=== PATIENT | female | born 1950 | race Caucasian/White ===

== ENCOUNTER → 2017-12-07 12:31 | Outpatient (CLI) | payer MEDICARE, OTHER, SELFPAY ==
--- NOTE | 2017-12-07 | DI.MG.S_ITS ---
BILATERAL DIGITAL SCREENING MAMMOGRAM 3D/2D WITH CAD: 12/07/2017 CLINICAL: Routine screening. Family history of breast cancer. Comparison is made to exams dated: 02/28/2016 mammogram, 02/26/2015 mammogram, and 02/13/2014 mammogram - [facility]. There are scattered fibroglandular elements in both breasts. Current study was also evaluated with a Computer Aided Detection (CAD) system. No significant masses, calcifications, or other findings are seen in either breast. There has been no significant interval change. IMPRESSION: NEGATIVE There is no mammographic evidence of malignancy. A 1 year screening mammogram is recommended. This exam was interpreted at Station ID: [id number]. NOTE: For mammograms, a report in lay terms will be sent to the patient. Approximately 15% of breast malignancies will not be visualized mammographically. In the management of a palpable breast mass, a negative mammogram must not discourage biopsy of a clinically suspicious lesion. Electronically Signed By: Mariam lynn/mary:12/07/2017 15:41:35 letter sent: Normal Exam ACR BI-RADS Category 1: Negative 3341F
== END ==
PROVIDERS: Family Provider Internal Medicine; PCP Internal Medicine; Visit Provider Internal Medicine
DX: Z12.31 Encounter for screening mammogram for malignant neoplasm of breast (principal); Z80.3 Family history of malignant neoplasm of breast; Z78.0 Asymptomatic menopausal state; Z90.722 Acquired absence of ovaries, bilateral
CPT/HCPCS: 77063; 77067; 77080

== ENCOUNTER → 2018-09-06 15:06 | Outpatient (CLI) | payer MEDICARE, OTHER, SELFPAY ==
[2018-09-06 16:21] LABS: Hemoglobin A1C% w Est Avg Glu 6.7 % (4.0-6.0)
== END ==
PROVIDERS: PCP Internal Medicine; Visit Provider Internal Medicine
DX: E11.9 Type 2 diabetes mellitus without complications (principal)
CPT/HCPCS: 36415; 83036

== ENCOUNTER 2018-12-20 03:25 | Emergency (ER) | payer MEDICARE, OTHER, SELFPAY ==
--- NOTE | 2018-12-20 03:31 | DI.RAD.S_ITS ---
PROCEDURE: XR CHEST 1V INDICATIONS: chest pain eval TECHNIQUE: One view of the chest was acquired. COMPARISON: None. FINDINGS: Surgical changes and devices: None. Lungs and pleura: Lungs are clear. No pleural effusions or pneumothorax. Mediastinum: Mediastinal contours appear normal. Heart size is normal. Bones and chest wall: No suspicious bony lesions. Overlying soft tissues appear unremarkable. IMPRESSION: No acute cardiopulmonary disease process. Dictated by: Monica Norman MD, PhD on 12/20/2018 at 8:31 Approved by: Monica Norman MD, PhD on 12/20/2018 at 8:34
[2018-12-20 03:34] VITALS: BP 130/55; PULSE 82; RESP 15; TEMP 36.6; O2SAT 95; BMI 27.4
--- NOTE | 2018-12-20 03:34 | ED.CHESTPAIN ---
HPI - Chest Pain General Chief Complaint: Extremity Problem,Nontraumatic Stated Complaint: Left arm pain Time Seen by Provider: 12/20/18 03:26 Source: patient and family Mode of arrival: Ambulatory History of Present Illness HPI narrative: 68-year-old female nonsmoker with history of hypertension and diabetes presents with her in the chief complaint of left arm pain in the absence of any injury since 10:30 p.m. she denies any other symptoms such as dizziness, weakness or lightheadedness. She denies any history of the same. She denies any overuse or other significant activity in the past few days. She denies any change in her ability to tolerate exertion over the past days to weeks. She denies any history of cardiac illness, and she has never had a stress test or heart catheterization. She states her symptoms are worse when she lays down and improves upon standing. MD complaint: other Onset (ago): hour(s) Time: 22:30 Duration: improved Onset: during rest Pain location: other Severity: moderate Quality: aching Pain radiation: LUE Relieving factors: other Exacerbating factors: supine Treatments prior to arrival chest pain: other Related Data On Oral Contraceptives: No Home Medications Medication Instructions Recorded Confirmed biotin 5 mg PO BID #0 01/11/17 duloxetine [Cymbalta] 60 mg PO QDAY #0 01/11/17 gabapentin [Neurontin] 300 mg PO QAM #0 01/11/17 gabapentin [Neurontin] 600 mg PO HS #0 01/11/17 latanoprost [Xalatan] 1 drp OPHTH HS #0 01/11/17 lisinopril 20 mg PO BID #0 01/11/17 metformin [Glucophage XR] 1,000 mg PO BID #0 01/11/17 nortriptyline [Pamelor] 10 mg PO HS #0 01/11/17 omega [id number]-fish oil [Fish Oil] 1,200 mg PO QDAY #0 01/11/17 simvastatin 10 mg PO HS #0 01/11/17 sitagliptin [Januvia] 100 mg PO QDAY #0 01/11/17 trazodone 100 mg PO HS #0 01/11/17 Allergies Allergy/AdvReac Type Severity Reaction Status Date / Time No Known Allergies Allergy Uncoded 07/04/17 12:13 Review of Systems Constitutional Constitutional: Denies chills, Denies fatigue, Denies fever(s), Denies frequent falls, Denies lethargy and Denies weakness Eyes Eyes: Denies change in vision, Denies eye discharge, Denies irritation and Denies loss of vision ENT Ears, Nose, Mouth, and Throat: Denies change in voice, Denies dizziness, Denies neck pain, Denies sore throat and Denies throat swelling Cardiovascular Cardiovascular: Denies chest pain, Denies irregular heart rhythm, Denies lightheadedness, Denies palpitations, Denies dyspnea, Denies dyspnea on exertion and Denies orthopnea Respiratory Respiratory: Denies cough, Denies dyspnea, Denies dyspnea on exertion and Denies wheezing Gastrointestinal Gastrointestinal: Denies abdominal pain, Denies change in bowel habits, Denies diarrhea, Denies nausea and Denies vomiting Genitourinary Genitourinary: Denies hematuria, Denies flank pain, Denies urinary incontinence and Denies urinary urgency Musculoskeletal Musculoskeletal: Denies back pain, Denies muscle weakness, Denies neck pain, Denies numbness and Denies tingling Comments: arm pain Integumentary/Breasts Skin/Breast: Denies pruritus, Denies erythema, Denies rash and Denies wounds Neurologic Neurologic: Denies behavioral changes, Denies confusion, Denies dizziness, Denies frequent falls, Denies loss of vision, Denies numbness, Denies tingling and Denies weakness Psychiatric Psychiatric: Denies anxiety, Denies behavioral changes, Denies confusion, Denies depression, Denies homicidal ideation and Denies suicidal ideation Endocrine Endocrine: Denies fatigue, Denies flushing and Denies palpitations Hematologic/Lymphatic Hematologic/Lymphatic: Denies easy bruising Allergic/Immunologic Allergic/Immunologic: Denies urticaria, Denies throat swelling and Denies wheezing PFSH Social History Smoking Status: Never smoker Social History Smoking Status: Never smoker Exam Narrative Exam Narrative: GENERAL: [68] year old patient appears stated age. Well-nourished, well-developed patient, in mild distress. HEAD: Atraumatic. Normocephalic. EYES: Pupils equal round and reactive. Extraocular motions intact. No scleral icterus. No injection or drainage. ENT: Nose without bleeding, purulent drainage. Throat without erythema, tonsillar hypertrophy or exudate. Airway patent. NECK: Trachea midline. Non tender CARDIOVASCULAR: Regular rate and rhythm without murmurs, gallops, or rubs. RESPIRATORY: Clear to auscultation. Breath sounds equal bilaterally. No wheezes, rales, or rhonchi. GASTROINTESTINAL: Abdomen soft, non-tender, nondistended. EXTREMITIES: No edema or joint tenderness. BACK: Nontender without deformity or crepitance. No flank tenderness. NEURO: AOx3. SKIN: No rash or erythema of visible areas Initial Vital Signs Initial Vital Signs: Vital Signs Temperature 97.8 F 12/20/18 03:34 Pulse Rate 82 12/20/18 03:34 Respiratory Rate 15 12/20/18 03:34 Blood Pressure 130/55 L 12/20/18 03:34 Pulse Oximetry 95 12/20/18 03:34 Course Orders Ordered: ED Orders 12/20/18 03:29 EKG-12 Lead Stat 12/20/18 03:31 XR chest 1V Stat 12/20/18 03:50 Complete Blood Count AUTO DIFF Stat Comprehensive Metabolic Panel Stat D Dimer Stat Lipase Stat Troponin & CK Cardiac Panel Stat Sodium Chloride (Normal Saline 0.9%) 1,000 mls @ 150 mls/hr IV CONT PAVAN Last Admin: 12/20/18 03:45 Dose: 150 mls/hr Documented by: PALMA Discontinued Medications Aspirin (Aspirin Chew) 324 mg PO NOW ONE Stop: 12/20/18 03:32 Last Admin: 12/20/18 03:45 Dose: 324 mg Documented by: PALMA Vital Signs Vital signs: Vital Signs - 8 hr 12/20/18 03:34 Temperature 97.8 F Pulse Rate 82 Respiratory Rate 15 Blood Pressure 130/55 L Pulse Oximetry 95 MDM - Chest Pain Lab Data Result diagrams: 12/20/18 03:50 12/20/18 03:50 Labs: Lab Results 12/20/18 12/20/18 12/20/18 Range/Units 03:50 03:50 03:50 WBC 10.6 (4.5-11.0) X10^3/uL RBC 4.22 (4.0-5.2) X10^6/uL Hgb 12.5 (12.0-16.0) g/dL Hct 36.6 (36-46) % MCV 86.9 (80-100) fL MCH 29.7 (26-34) PG MCHC 34.2 (30-36) % RDW 12.7 (11.6-14.8) % Plt Count 338 (150-400) X10^3/uL Neut % (Auto) 57.9 (50-75) % Lymph % (Auto) 28.2 (25-40) % [place] % (Auto) 9.1 (3-14) % Eos % (Auto) 4.2 H (2-4) % Baso % (Auto) 0.6 (0-2) % Neut # (Auto) 6200 (8535-2257) /uL Lymph # (Auto) 3000 (3456-7080) /uL [place] # (Auto) 1000 H (0-900) /uL Eos # (Auto) 400 (0-450) /uL Baso # (Auto) 100 (0-100) /uL D-Dimer 229 (<230) ng/mL Sodium 138 (137-145) mmol/L Potassium 4.5 (3.4-5.1) mmol/L Chloride 102 (98-107) mmol/L Carbon Dioxide 25 (22-32) mmol/L BUN 25 H (7-17) mg/dL Creatinine 0.70 (0.52-1.04) mg/dL Estimated GFR > 60.0 (>60) mL/min BUN/Creatinine Ratio 35.7 H (6-22) Glucose 151 H (80-110) mg/dL Calcium 9.6 (8.4-10.2) mg/dL Total Bilirubin 0.5 (0.2-1.3) mg/dL AST 32 (14-36) IU/L ALT 40 (9-52) IU/L Alkaline Phosphatase 77 (38-126) U/L Total Creatine Kinase 47 (30-135) U/L CK-MB (CK-2) TNP CK-MB (CK-2) Rel Index TNP Troponin I < 0.012 (0.01-0.034) ng/mL Total Protein 6.9 (6.3-8.2) g/dL Albumin 4.1 (3.5-5.0) g/dL Globulin 2.8 (1.7-4.1) g/dL Albumin/Globulin Ratio 1.5 (1.0-2.8) Lipase 93 (23-300) U/L ECG Data Attestation: I personally reviewed and interpreted this ECG as follows: Interpretation: EKG is normal sinus rhythm rate [83] and free of any signs of ischemia or ectopy. No ST segmental elevation or depression. No T wave inversions MDM Narrative Medical decision making narrative: 68-year-old female hypertensive diabetic with left arm pain for about 5-1/2 hours on arrival. She recently had dermatologic procedures on chest and left arm. Multiple causes of chest pain considered including MA, PE, pneumothorax, pneumonia, aortic dissection, and pleurisy. Patient reports no radiation, no diaphoresis, no provocation with exertion, and no vomiting She denies cardiac equivalents such as dizziness, weakness or lightheadedness. She denies any chest pain or shortness of breath. Her pain is positional. EKG is nonischemic. Patient asymptomatic for duration of stay. Troponin at 5.5 hours is undetectable. Lengthy discussion with patient regarding return precautions. Questions answered to her apparent satisfaction Discharge Plan Departure Patient Disposition: Home Clinical Impression: Arm pain, left Instructions: DI for Arm Pain Activity Restrictions/Additional Instructions: *You have been diagnosed with [left arm pain] *What to do: *Take medications as directed *Follow up with your primary care provider in 2-3 days, call for an appointment. Let them know you were seen in the Emergency Department and that we ask that you be seen in follow up *Return to ER if you should have any new, worsening or concerning symptoms Prescriptions: No Action simvastatin 10 MG tablet 10 mg PO HS Qty: 0 RF: 0 lisinopril 20 MG tablet 20 mg PO BID Qty: 0 RF: 0 metformin [Glucophage XR] 500 MG tablet extended release 24 hr 1,000 mg PO BID Qty: 0 RF: 0 trazodone 100 MG tablet 100 mg PO HS Qty: 0 RF: 0 nortriptyline [Pamelor] 10 MG capsule 10 mg PO HS Qty: 0 RF: 0 gabapentin [Neurontin] 300 MG capsule 300 mg PO QAM Qty: 0 RF: 0 duloxetine [Cymbalta] 60 MG capsule,delayed release(DR/EC) 60 mg PO QDAY Qty: 0 RF: 0 gabapentin [Neurontin] 300 MG capsule 600 mg PO HS Qty: 0 RF: 0 sitagliptin [Januvia] 100 MG tablet 100 mg PO QDAY Qty: 0 RF: 0 latanoprost [Xalatan] 0.005 % drops 1 drp OPHTH HS Qty: 0 RF: 0 biotin 5 MG tablet 5 mg PO BID Qty: 0 RF: 0 omega 8-jhh-jfw-fish oil [Fish Oil] 1,000 MG capsule 1,200 mg PO QDAY Qty: 0 RF: 0 Referrals: Lisandro Aguilar MD [Primary Care Provider] -
[2018-12-20] MEDS: ASPIRIN 81 MG CHEW TAB 324 MG PO (03:45)
[2018-12-20] MEDS: SODIUM CHLORIDE 0.9% 1,000 ML 150 ML IV (03:45)
[2018-12-20 03:55] LABS: Add Manual Diff / Slide Review NO; Basophils Absolute Auto 100 /uL (0-100); Basophils Percent Auto 0.6 % (0-2); Eosinophils Absolute Auto 400 /uL (0-450); Eosinophils Percent Auto 4.2 % (2-4); Hematocrit 36.6 % (36-46); Hemoglobin 12.5 g/dL (12.0-16.0); Lymphocytes Absolute Auto 3000 /uL (1100-4500); Lymphocytes Percent Auto 28.2 % (25-40); Mean Corpuscular HGB Conc 34.2 % (30-36); Mean Corpuscular Hemoglobin 29.7 PG (26-34); Mean Corpuscular Volume 86.9 fL (80-100); Monocytes Absolute Auto 1000 /uL (0-900); Monocytes Percent Auto 9.1 % (3-14); Neutrophils Absolute Auto 6200 /uL (1500-7000); Neutrophils Percent Auto 57.9 % (50-75); Platelet Count 338 X10^3/uL (150-400); Red Blood Cell Count 4.22 X10^6/uL (4.0-5.2); Red Cell Distribution Width 12.7 % (11.6-14.8); White Blood Cell Count 10.6 X10^3/uL (4.5-11.0)
[2018-12-20 04:04] LABS: D Dimer 229 ng/mL (<230)
[2018-12-20 04:05] LABS: Alanine Aminotransferase 40 IU/L (9-52); Albumin 4.1 g/dL (3.5-5.0); Albumin Globulin Ratio 1.5 (1.0-2.8); Alkaline Phosphatase 77 U/L (38-126); Aspartate Aminotransferase 32 IU/L (14-36); BUN Creatinine Ratio 35.7 (6-22); Bilirubin Total 0.5 mg/dL (0.2-1.3); Blood Urea Nitrogen 25 mg/dL (7-17); Calcium 9.6 mg/dL (8.4-10.2); Carbon Dioxide 25 mmol/L (22-32); Chloride 102 mmol/L (98-107); Creatine Kinase 47 U/L (30-135); Estimated Glomerular Filt Rate > 60.0 mL/min (>60); Globulin 2.8 g/dL (1.7-4.1); Glucose 151 mg/dL (80-110); HEMOLYSIS < 15 (0-50); Lipase 93 U/L (23-300); Potassium 4.5 mmol/L (3.4-5.1); Sodium 138 mmol/L (137-145); Total Protein 6.9 g/dL (6.3-8.2)
[2018-12-20 04:16] LABS: Troponin I < 0.012 ng/mL (0.01-0.034)
[2018-12-20 04:45] VITALS: BP 116/54; PULSE 80; RESP 15; O2SAT 95
== END 2018-12-20 04:46 | disposition home or self-care (01) ==
PROVIDERS: Emergency Provider Emergency Medicine; PCP Internal Medicine
DX: M79.602 Pain in left arm (principal)
CPT/HCPCS: 36415; 71045; 80053; 82550; 83690; 84484; 85025; 85379; 93005; 93010; 99283; 99285

== ENCOUNTER → 2019-04-07 10:57 | Outpatient (CLI) | payer MEDICARE, OTHER, SELFPAY ==
--- NOTE | 2019-04-07 | DI.RAD.S_ITS ---
PROCEDURE: XR HIP W PEL IF DONE LT 2V INDICATIONS: Pain in left hip TECHNIQUE: AP pelvis with lateral view(s) of the left hip. COMPARISON: None. FINDINGS: Bones: No fractures or dislocations. Pelvic ring appears intact. No suspicious bony lesions. Soft tissues: The visualized bowel gas pattern is normal. No suspicious soft tissue calcifications. IMPRESSION: No source of asymmetric left hip pain found. Dictated by: Zach Hollingsworth M.D. on 04/07/2019 at 12:23 Approved by: Zach Hollingsworth M.D. on 04/07/2019 at 12:24
== END ==
PROVIDERS: PCP Internal Medicine; Visit Provider Student in an Organized Health Care Education/Training Program
DX: M25.552 Pain in left hip (principal)
CPT/HCPCS: 73502

== ENCOUNTER → 2019-12-10 11:32 | Outpatient (CLI) | payer MEDICARE, OTHER, SELFPAY ==
--- NOTE | 2019-12-10 11:44 | DI.MG.S_ITS ---
Patient Name: RENATO ALVA date: 1950 Sex: F Attending Physician: Jeff Indications: Date: 12/10/2019 11:38 At the request of: BALTAZAR CHRISTINE Procedure: MM screening mammo BI BILATERAL DIGITAL SCREENING MAMMOGRAM 3D/2D WITH CAD: 12/10/2019 CLINICAL: Routine screening. Family history of breast cancer. Comparison is made to exams dated: 12/07/2017 mammogram, 02/28/2016 mammogram, and 02/26/2015 mammogram - [facility]. There are scattered fibroglandular elements in both breasts. Current study was also evaluated with a Computer Aided Detection (CAD) system. No significant masses, calcifications, or other findings are seen in either breast. There has been no significant interval change. IMPRESSION: NEGATIVE There is no mammographic evidence of malignancy. A 1 year screening mammogram is recommended. This exam was interpreted at Station ID: [id number]. NOTE: For mammograms, a report in lay terms will be sent to the patient. Approximately 15% of breast malignancies will not be visualized mammographically. In the management of a palpable breast mass, a negative mammogram must not discourage biopsy of a clinically suspicious lesion. Electronically Signed By: José Luis Jiménez M.D., jr/mary:12/10/2019 14:11:17 letter sent: Normal Exam ACR BI-RADS Category 1: Negative 3341F
== END ==
PROVIDERS: PCP Internal Medicine; Referring Provider Internal Medicine; Visit Provider Internal Medicine
DX: Z12.31 Encounter for screening mammogram for malignant neoplasm of breast (principal); Z80.3 Family history of malignant neoplasm of breast; E55.9 Vitamin D deficiency, unspecified; E11.9 Type 2 diabetes mellitus without complications; N28.1 Cyst of kidney, acquired; E78.2 Mixed hyperlipidemia; I10 Essential (primary) hypertension; E83.42 Hypomagnesemia
CPT/HCPCS: 77063; 77067; 80053; 80061; 82306; 82607; 83735; 84443; 85025

== ENCOUNTER → 2019-12-10 15:43 | Outpatient (ROUT) | payer MEDICARE, OTHER, SELFPAY ==
[2019-12-10 16:11] LABS: Alanine Aminotransferase 25 IU/L (<35); Albumin 3.9 g/dL (3.5-5.0); Albumin Globulin Ratio 1.6 (1.0-2.8); Alkaline Phosphatase 79 U/L (38-126); Aspartate Aminotransferase 25 IU/L (14-36); BUN Creatinine Ratio 38.4 (6-22); Bilirubin Total 0.3 mg/dL (0.2-1.3); Blood Urea Nitrogen 28 mg/dL (7-17); Calcium 9.5 mg/dL (8.4-10.2); Carbon Dioxide 28 mmol/L (22-32); Chloride 100 mmol/L (98-107); Cholesterol 195 mg/dL (140-199); Estimated Glomerular Filt Rate > 60.0 mL/min (>60); Globulin 2.5 g/dL (1.7-4.1); Glucose 186 mg/dL (80-110); HDL Cholesterol 69 mg/dL (40-60); HEMOLYSIS < 15 (0-50); LDL Cholesterol Calculated 87 mg/dL (<100); Magnesium 1.4 mg/dL (1.6-2.3); Potassium 4.9 mmol/L (3.4-5.1); Sodium 137 mmol/L (137-145); Total Protein 6.4 g/dL (6.3-8.2); Triglycerides 196 mg/dL (35-150)
[2019-12-10 16:18] LABS: Add Manual Diff / Slide Review NO; Basophils Absolute Auto 100 /uL (0-100); Basophils Percent Auto 0.9 % (0-2); Eosinophils Absolute Auto 500 /uL (0-450); Eosinophils Percent Auto 7.2 % (2-4); Hematocrit 36.3 % (36-46); Lymphocytes Absolute Auto 1800 /uL (1100-4500); Lymphocytes Percent Auto 23.5 % (25-40); Mean Corpuscular HGB Conc 33.1 % (30-36); Mean Corpuscular Hemoglobin 29.6 PG (26-34); Mean Corpuscular Volume 89.6 fL (80-100); Monocytes Absolute Auto 500 /uL (0-900); Monocytes Percent Auto 6.9 % (3-14); Neutrophils Absolute Auto 4600 /uL (1500-7000); Neutrophils Percent Auto 61.5 % (50-75); Platelet Count 322 X10^3/uL (150-400); Red Blood Cell Count 4.05 X10^6/uL (4.0-5.2); Red Cell Distribution Width 14.1 % (11.6-14.8); White Blood Cell Count 7.5 X10^3/uL (4.5-11.0)
[2019-12-10 16:50] LABS: Vitamin D 25 Hydroxy (D3) 35.5 ng/mL (30.0-100.0)
[2019-12-10 16:57] LABS: Vitamin B12 440 pg/mL (239-931)
== END ==
PROVIDERS: PCP Internal Medicine; Visit Provider Internal Medicine
DX: E55.9 Vitamin D deficiency, unspecified (principal); E11.9 Type 2 diabetes mellitus without complications; N28.1 Cyst of kidney, acquired; E78.2 Mixed hyperlipidemia; I10 Essential (primary) hypertension; E83.42 Hypomagnesemia
CPT/HCPCS: 80053; 80061; 82306; 82607; 83735; 84443; 85025

== ENCOUNTER → 2020-10-18 12:38 | Outpatient (CLI) | payer MEDICARE, OTHER, SELFPAY ==
--- NOTE | 2020-10-18 | DI.CT.S_ITS ---
PROCEDURE: CT LUMBAR SPINE WO CON INDICATIONS: Spinal stenosis, lumbar region with neurogenic cla TECHNIQUE: Noncontrast 3 mm thick sections acquired from the T12 level to the sacrum. Sagittal and coronal reformats were constructed. For radiation dose reduction, the following was used: automated exposure control. COMPARISON: [facility], MR, MR LUMBAR SPINE WITHOUT CONTRAST, 06/05/2019, 7:16. [facility] [place], CR, XR LUMBAR SPINE 2 OR 3 VIEWS, 08/03/2020, 15:12. FINDINGS: Image quality: Excellent. Bones: There is normal bony alignment. No acute vertebral body compression fractures. No suspicious lytic or blastic bony lesions. No pars defects. T12-L1: Mild diffuse disc bulge. Mild bilateral facet hypertrophy. Mild canal stenosis. Mild bilateral foraminal stenosis. L1-L2: Mild disc height loss. Mild diffuse disc bulge. Mild bilateral facet hypertrophy. Mild canal stenosis. Mild bilateral foraminal stenosis. L2-L3: Mild disc height loss. Mild diffuse disc bulge. Mild bilateral facet hypertrophy. Mild canal stenosis. Mild bilateral foraminal stenosis. L3-L4: Moderate disc height loss. Mild diffuse disc bulge. Mild facet and ligamentum flavum hypertrophy. Moderate to severe canal stenosis. Moderate left and mild right foraminal stenosis. L4-L5: Moderate disc height loss. Mild diffuse disc bulge. Moderate facet and ligamentum flavum hypertrophy. Mild epidural lipomatosis. Moderate canal stenosis. Moderate right and mild left foraminal stenosis. L5-S1: Severe disc height loss. Mild diffuse disc bulge. Mild bilateral facet hypertrophy. Mild canal stenosis. Moderate to severe bilateral foraminal stenosis with bilateral L5 nerve root compression. Soft tissues: No retroperitoneal masses or hematomas. Visualized aorta is normal in caliber. IMPRESSION: 1. Multilevel degenerative disc and facet disease. 2. Multilevel canal stenoses, worst at L3-L4 and L4-L5 as above. 3. Multilevel foraminal stenoses, worst at L5-S1 bilaterally where there is associated intraforaminal nerve root compression. Recommend correlation with clinical symptoms to ascertain relevance of these findings. Dictated by: Susy Leggett M.D. on 10/18/2020 at 13:36 Approved by: Susy Leggett M.D. on 10/18/2020 at 13:39
== END ==
PROVIDERS: PCP Internal Medicine; Referring Provider Orthopaedic Surgery Orthopaedic Surgery of the Spine; Visit Provider Orthopaedic Surgery Orthopaedic Surgery of the Spine
DX: M48.062 Spinal stenosis, lumbar region with neurogenic claudication (principal); M48.07 Spinal stenosis, lumbosacral region; M51.36 Other intervertebral disc degeneration, lumbar region; M51.37 Other intervertebral disc degeneration, lumbosacral region
CPT/HCPCS: 72131

== ENCOUNTER → 2020-11-02 10:43 | Outpatient (CLI) | payer MEDICARE, OTHER, SELFPAY ==
[2020-11-02 11:38] LABS: COVID19 -Nasal RAPID Negative (Negative)
== END ==
PROVIDERS: PCP Internal Medicine; Visit Provider Nurse Practitioner
DX: Z20.822 Contact with and (suspected) exposure to COVID-19 (principal)
CPT/HCPCS: 87635

== ENCOUNTER 2020-11-03 10:56 | Inpatient (IN) | payer MEDICARE, OTHER, SELFPAY ==
[2020-10-27 09:47] VITALS: BMI 30.7
[2020-11-03] VITALS (18 sets, daily range): BP systolic 97–165; BP diastolic 48–95; PULSE 66–90; RESP 12–16; TEMP 35.8–36.7; O2SAT 89–100; BMI 30.7
[2020-11-03 11:45] LABS: Appearance Urine UA SL CLOUDY; Bilirubin Urine UA NEGATIVE (NEGATIVE); Color Urine UA YELLOW; Glucose Urine UA 3+ g/dL (Negative); Ketones Urine UA NEGATIVE (NEGATIVE); Leukocyte Esterase Urine UA NEGATIVE (NEGATIVE); Nitrite Urine UA POSITIVE (Negative); Occult Blood Urine UA TRACE-LYSED (Negative); Protein Urine UA NEGATIVE (Negative); Urobilinogen Urine UA 0.2 E.U./dL (0.2)
[2020-11-03 12:06] LABS: Bacteria Urine Many (>30); Culture Indicated Urine Specimen Cultured; RBC Urine 0-1/HPF (0-5/HPF); Squamous Epithelial Cell Urine 1-5 /HPF (0-5/HPF); WBC Urine 10-30/HPF (0-5/HPF)
[2020-11-03] MEDS: ACETAMINOPHEN 325 MG TABLET 975 MG PO (12:08)
[2020-11-03] MEDS: GABAPENTIN 600 MG TABLET PO (12:08)
[2020-11-03] MEDS: LACTATED RINGERS 1,000 ML 42 ML IV ×2 (12:10→16:57)
--- NOTE | 2020-11-03 12:46 | PM.PREOP ---
Pre-operative Note COVID-19 COVID-19 status: Negative Result date/Date tested (Pos, Neg/Pending): 11/01/20 Interval Note History & Physical reviewed/Exam performed by Physician: Yes Changes to H&P: No
[2020-11-03] MEDS: CEFAZOLIN 1 GM VIAL 2 GM IV ×2 (13:56→21:15)
--- NOTE | 2020-11-03 14:25 | SUR.OPER ---
Prone on spine table, head in foam head support, padded chest and pelvic supports, gel pad at knees, lower legs supported by pillows; nipples, genitalia and toes free of pressure, arms secured on foam padded arm boards at <90 degrees abduction. Tape over blanket at thigh secured to table.
[2020-11-03] MEDS: BUPIVACAINE 0.25% W/ EPI 30 ML VIAL INJ (14:33)
[2020-11-03] MEDS: BUPIVACAINE LIPOSOME 266 MG/20 ML VIAL INJ (14:33)
--- NOTE | 2020-11-03 14:35 | SUR.OPER ---
Patient voided prior to coming in to Operating Room. Patient's glasses placed in marked belongings bag. Patient stated she had already taken her hearing aids out.
[2020-11-03] MEDS: DEXTROSE 5%-0.45% NS 1,000 ML 100 ML IV (15:10)
--- NOTE | 2020-11-03 16:52 | DI.RAD.S_ITS ---
PROCEDURE: XR LUMBAR SPINE 2-3V INDICATIONS: L4-5, L5-S1 TLIF TECHNIQUE: 2 nondiagnostic intraoperative fluoroscopic views of the lumbar spine were acquired. COMPARISON: None. FINDINGS: There are two intraoperative fluoroscopic images which demonstrate postsurgical changes of L4-S1 posterior fixation by means of bilateral rods and pedicle screws with interbody devices. There is no acute complicating hardware feature identified grossly. IMPRESSION: L4-S1 posterior fixation. Dictated by: José Luis Jiménez M.D. on 11/03/2020 at 17:09 Approved by: José Luis Jiménez M.D. on 11/03/2020 at 17:09
--- NOTE | 2020-11-03 17:05 | PM.OP.1 ---
Operative Date/Time/Diagnoses Date of procedure: 11/01/20 Time of procedure: 12:50 Pre-op diagnosis: 1. L4-5, L5-S1 spinal stenosis 2. L4-5, L5-S1 spondylosis with radiculopathy Post-op diagnosis: same Procedure & Clinicians Procedure: 1. L4-5, L5-S1 Postero-lateral and posterior interbody fusion 2. L4-5, L5-S1 interbody cage placement. 3. L4-5, L5-S1 decompressive laminectomy with bilateral facetecomies 4. L4-5, L5-S1 Posterior segmental instrumentation 5. [place] of bone marrow from iliac crest 6. Utilization of microsurgical technique and operating microscope Same procedure as scheduled: Yes Indications: Patient has been having chronic back pain and worsening lumbar radiculopathy. Patient failed multiple conservative management with worsening pain weakness and numbness in her lower extremity. Patient has been having difficulty performing activity of daily living. After discussing risks benefits of treatment options, patient elected proceed with surgery. Surgeon: Jocelynn Sanchez Paradichlorobenzene Machine Operator: Osorio Montes Click Yes if Unassisted: No Anesthesia Type: General Operative Notes Closure Type: primary Specimen(s): none sent Prosthetic devices, grafts, tissues, transplants, or devices: Globus CREO MIS screws, Rise Cages Applied: catheter Estimated Blood Loss (mL): 150 Blood products transfused: none Procedure in detail: Patient was seen in the preoperative area. Risks and benefits of the surgery was discussed with the patient. Informed consent was obtained from the patient and placed in the chart. Surgical site was marked. Patient was taken to the operative room. General anesthesia was administered. Prophylactic antibiotic was given to the patient less than 30 min before the incision was made. Patient was placed into a prone position on the Julián table. Patient's back was then prepped and draped in the sterile fashion. Time-out was performed at this time. After patient was prepped and draped, patient's PSIS was palpated and marked bilaterally. Small 1 cm incision was made over the PSIS for placement of the reference probes. Two trocar was placed into the PSIS 1 on each side. The reference probe was attached to the trocar of the reference apparatus. At this time the C-arm imaging was used to confirm AP and lateral of L4-L5, L5-S1 vertebrae and merged the C-arm imaging using the Sponduu robotic navigation system with the CT of the lumbar spine. After successful merging was completed and confirmed, skin marker was used to jose out the skin incision using the Sponduu robotic arm. Bilateral incision was made at this time. Pre templated trajectory was used and guided using the Sponduu robotic navigation system for bilateral L4, L5, S1 pedicle screw placement. This was done by using the robotic arm to guide the high-speed bur to make a cortical entry point. Next a drill was placed also using the robotic arm and guided using the navigation system drilling partially through bilateral L4, L5 and S1 pedicles. Next L4, L5, S1 pedicle screws it was pre templated and measured was placed onto the power maintenance truck driver and inserted into the pedicles bilaterally. After all 6 screws were placed C-arm imaging was taken of both AP and lateral to confirm the placement. Excellent placement of the screws were confirmed and a matched precisely with the pre planned screw placement using the navigation system. MARs retractor was inserted using Nimbixivation guidence. Globus MARS retractors was placed inside the incision and docked onto the L4 and L5 lamina. Using microsurgical technique and operating microscope, a L4, L5 laminectomy and L4-5, L5-S1 facetectomy was performed using a Kerrison rongeur. Patient was found have severe lateral recess and neural foramen stenosis which was fully decompressed after the laminectomy facetectomy. More than 75% of the facets were removed during the process of decompression rendering L4-5, L5-S1 level grossly unstable and required a fusion procedure at the same time. The disc space at L4-5, L5-S1 was identified, and a total diskectomy was performed at L4-5, L5-S1 level. The endplates were decorticated using a rasp and shaver. The total diskectomy and decortication was performed at L4-5, L5-S1 level in order to to accomplish a L4-5, L5-S1 fusion. The local bone from the laminectomy and facetectomy was saved for local bone grafting. After the total diskectomy and decortication was completed, Trifecta bone graft material was combined with local bone that was harvested earlier. At this time, a separate skin is incision was made over the iliac crest. A Jamshidi needle was inserted into the iliac crest through a separate skin incision. 5 cc of bone marrow aspiration was obtained through the separate skin incision using a Jamshidi needle from the iliac crest. The bone marrow aspiration was combined with local bone and the Trifecta bone grafting material. The bone grafting material was placed into the L4-5, L5-S1 interbody space along with a expandable cage. The cage was expanded to its maximum height using the torque limiting screwdriver. The disc preparation as well as the cage insertion were also performed under navigation guidance. After the cage was placed, AP and lateral C-arm imaging was taken to confirm placement of the cage and excellent position was confirmed. Globus MARS retractor was inserted and docked onto the L4-5, L5-S1 posterolateral gutter on the right side. Using the power drill, posterior-lateral decortication was performed at L4-5, L5-S1 level until bleeding cortical bone was identified. The remaining bone grafting material was placed into the L4-5, L5-S1 posterior lateral gutter he order to accomplish posterolateral fusion at the L4-5, L5-S1 level. At this time the tulips were attached to the L4, L5, S1 pedicle screw shanks. After measuring the length of the rods, they were inserted into the tulips of the pedicle screws and locked in place using locking caps and torque limiting screwdriver bilaterally. Total 6 caps and 2 titanium rods was used in order to complete the posterior instrumentation construct. After all the hardware was placed, and confirmed with AP and lateral C-arm imaging, the wound was then irrigated with sterile normal saline and packed with Ray-Luis gauze for 3 min to accomplish hemostasis. After the gauze was removed the deep fascia was closed with #1 Vicryl suture. The subcutaneous layer was closed with 2-0 Vicryl. The skin was closed with skin joya. Patient tolerated the procedure well. There were no complications. Neuro monitoring system was used to monitor patient's neurologic status throughout entire procedure. There was no disturbance of the neural monitoring signals throughout the case. Complications: none Post-operative Condition: stable Disposition: PACU Plan for aftercare: Admit to inpatient hospital
[2020-11-03] MEDS: HYDROMORPHONE 2 MG INJ IV ×4 (17:40→17:57)
[2020-11-03] MEDS: OXYCODONE IR 5 MG TABLET PO (17:54)
[2020-11-03] MEDS: SODIUM CHLORIDE 0.9% 1,000 ML 100 ML IV (18:59)
[2020-11-03] MEDS: HYDROMORPHONE 0.5 MG INJ IV ×2 (18:59→22:20)
--- NOTE | 2020-11-03 19:20 | PC.NURSE ---
Patient up to unit from PACU at 1830. Bed low and locked and call light within reach along with other personal items. Patient requiring 2L NC but weaning off as needed. Patient denies sob, nausea. Having pain rated 7/10 so gave IV dilaudid. Patient's is at the bedside and is attentive to patient. He will be bringing in her jardiance as we do not stock this as well as a copy of the patient's advanced directive.
[2020-11-03] MEDS: TIMOLOL 0.5% OPHTH 1 DROPS EYE-BOTH (21:14)
[2020-11-03] MEDS: LATANOPROST 0.005% OPHTH 2.5 ML 1 DROPS EYE-BOTH (21:14)
[2020-11-03] MEDS: OXYCODONE IR 5 MG TABLET 10 MG PO (21:15)
[2020-11-03] MEDS: NORTRIPTYLINE 10 MG CAPSULE PO (21:15)
[2020-11-03] MEDS: ATORVASTATIN 20 MG TABLET 10 MG PO (21:16)
[2020-11-03] MEDS: DOCUSATE 100 MG CAPSULE PO (21:16)
[2020-11-03] MEDS: glyBURIDE 2.5 MG TABLET 5 MG PO (21:16)
[2020-11-03] MEDS: SENNOSIDES 8.6 MG TABLET 17.2 MG PO (21:16)
[2020-11-03] MEDS: GABAPENTIN 300 MG CAPSULE 600 MG PO (21:16)
[2020-11-03] MEDS: lisinopriL 20 MG TABLET PO (21:17)
[2020-11-03] MEDS: TRAZODONE 100 MG TABLET PO (21:17)
[2020-11-04] VITALS (10 sets, daily range): BP systolic 134–152; BP diastolic 56–93; PULSE 89–102; RESP 16–18; TEMP 36.6–37.4; O2SAT 94–99
[2020-11-04] MEDS: ONDANSETRON 4 MG/2 ML INJ IV (01:36)
[2020-11-04] MEDS: HYDROMORPHONE 0.5 MG INJ IV ×2 (02:26→05:01)
--- NOTE | 2020-11-04 02:45 | PC.NURSE ---
Addendum entered by Nelda Pittman R.N. 11/04/20 05:05: Had another 100cc emesis. Too early to give Zofran again so medicated with po Vistaril with sips of water. Medicated also with IV Dilaudid for complaint of 7/10 back pain. Original Note: Patient is alert and oriented. [place] and has bilateral hearing aids. Breath sounds CTA but per evening RN patient's oxygen level dropped into mid 80's when asleep so is now on oxygen at 2L/min per NC with sat of 95%. HRR. BP trending high and was 148/93. Denied nausea. BT present but is not yet passing flatus. Indwelling catheter is patent; urine is clear, pale, yellow. Is able to turn herself. Dressing to back is CDI. Has not yet been out of bed so gait not assessed. Stated pain had improved to 3/10 following administration of IV Dilaudid earlier; ice pack applied to back after repositioning. Wearing bilateral foot SCD's. CMS is intact bilaterally. Fall risk score is moderate but spouse at bedside so alarm not activated. Patient earlier complaining of nausea and was medicated per Juliana NICOLE, with Zofran but now had 150cc emesis. States pain is currently 9/10 so medicated with IV Dilaudid; states she is unable to take Oxycodone as it makes me weird. Also complains of headache so instructed to call if IV Dilaudid does not resolve the headache once nausea is resolved.
[2020-11-04] MEDS: hydrOXYzine pamoate 25 MG CAPSULE PO ×2 (04:58→21:33)
[2020-11-04] MEDS: CEFAZOLIN 1 GM VIAL 2 GM IV (05:33)
[2020-11-04] MEDS: SODIUM CHLORIDE 0.9% 1,000 ML 100 ML IV (05:35)
[2020-11-04 06:34] LABS: Hematocrit 39.6 % (36-46); Hemoglobin 12.7 g/dL (12.0-16.0)
[2020-11-04] MEDS: DOCUSATE 100 MG CAPSULE PO ×2 (08:02→19:52)
[2020-11-04] MEDS: glyBURIDE 2.5 MG TABLET 5 MG PO ×2 (08:06→17:16)
[2020-11-04] MEDS: TIMOLOL 0.5% OPHTH 1 DROPS EYE-BOTH (08:06)
[2020-11-04] MEDS: GABAPENTIN 300 MG CAPSULE 600 MG PO ×3 (08:06→19:52)
[2020-11-04] MEDS: lisinopriL 20 MG TABLET PO ×2 (08:07→19:51)
[2020-11-04] MEDS: TRAMADOL 50 MG TABLET PO ×4 (08:07→21:34)
[2020-11-04] MEDS: PIOGLITAZONE 15 MG TABLET 30 MG PO (08:07)
[2020-11-04] MEDS: DULOXETINE 30 MG CAPSULE 60 MG PO (08:19)
[2020-11-04] MEDS: SITAGLIPTIN 50 MG TABLET 100 MG PO (08:19)
--- NOTE | 2020-11-04 08:19 | PM.PNPO.1 ---
Subjective Subjective Date Patient Seen: 11/04/20 Time Patient Seen: 08:19 Interval history: The patient is complaining of moderate pain, mostly a headache which is perpetuating her back pain. She has a history of migraines and is requesting Immitrex for her pain, which has been effective in the past. She also notes she has a few days of malodorous urine prior to surgery, and her UA was positive for WBC and nitrates. She is also complaining of nausea and vomiting, which is improving slightly. She has not gotten up with physical therapy yet. Exam Vital Signs (past 8 hours): - 11/04/20 01:25 11/04/20 05:53 11/04/20 07:40 Temperature 97.8 F 98.1 F Pulse Rate 91 H 101 H 102 H Respiratory Rate 18 16 16 Blood Pressure 148/93 H 134/82 152/90 H Pulse Oximetry 98 97 97 11/04/20 08:07 Temperature Pulse Rate 100 H Respiratory Rate Blood Pressure 152/90 H Pulse Oximetry Oxygen Delivery Method Nasal Cannula Oxygen Flow Rate 2 Narrative Exam Narrative: 70yo female resting in bed, very mild distress with nausea and headache. Motor functions intact bilateral lower extremities. Sensation grossly intact to light touch bilateral lower extermities. Both legs are warm and dry. SCDs on and functioning. Scant drainage on dressing bilaterally, otherwise intact. Calves are soft, nontender to palpation. Objective Labs Result Diagrams: 11/04/20 06:21 Labs: Laboratory Results - last 24 hr 11/03/20 11/04/20 11:27 06:21 Hgb 12.7 Hct 39.6 Urine Color Yellow Urine Appearance Sl cloudy Urine pH 7.0 Ur Specific [place] 1.010 Urine Protein Negative Urine Glucose (UA) 3+ H Urine Ketones Negative Urine Occult Blood Trace-lysed Urine Nitrate Positive H Urine Bilirubin Negative Urine Urobilinogen 0.2 Ur Leukocyte Esterase Negative Urine RBC 0-1/hpf Urine WBC 10-30/hpf H Ur Squamous Epith Cells 1-5 /hpf Urine Bacteria Many (>30) H Ur Culture Indicated? Specimen cultured [facility] Medical History Anxiety Diabetes Easy bruisability Eye pressure Hard of hearing HLD (hyperlipidemia) HTN (hypertension) Surgical History History of ear surgery History of hysterectomy History of tonsillectomy Hx of bilateral cataract extraction Social History household members: spouse Smoking Status: Never smoker alcohol intake: current Assessment & Plan Post-op Postoperative Procedures: Procedures Operation Date: 11/03/20 12:45 Actual Procedure Side Surgeon p L4-5, L5-S1 TLIF w. posterior instrumentation Jocelynn Sanchez MD Stable status post lumbar fusion. PLan: mobilize with physical therapy. Limit bending, twisting, lifting. Better pain control, will change to tyelnol, tramadol for mild-moderate pain, and oral dilaudid as needed for severe pain. Will try Immitrex for her migraine. Start Bactrim DS x5 days for UTI. Discontinue the Muller this afternoon. Disposition: likely home tomorrow. Quality VTE Deep Vein Thrombosis/Pulmonary Embolism Present on Admission: No
[2020-11-04] MEDS: TRIMETH/SULFA 160/800 (DS) TABLET 1 TAB PO ×2 (09:28→19:52)
[2020-11-04] MEDS: SUMAtriptan 6 MG/0.5 ML VIAL SUBCUT (09:28)
--- NOTE | 2020-11-04 09:50 | OT.IP.EVAL ---
Current Diagnoses Spinal stenosis, lumbar region with neurogenic claudication (11/03/20) Surgery Performed Operation Date: 11/03/20 12:45 Actual Procedures p L4-5, L5-S1 TLIF w. posterior instrumentation - Jocelynn Sanchez MD Past Medical History (Last Reviewed 11/04/20 @ 08:36 by Nay Isaacs PA-C) Anxiety Diabetes Easy bruisability Eye pressure Hard of hearing History of ear surgery History of hysterectomy History of tonsillectomy HLD (hyperlipidemia) HTN (hypertension) Hx of bilateral cataract extraction Surgical History (Last Reviewed 11/04/20 @ 08:36 by Nay Isaacs PA-C) History of ear surgery History of hysterectomy History of tonsillectomy Hx of bilateral cataract extraction Occupational Therapy Inpatient Evaluation/Re-Eval M1 PT/OT-IP Prior Functional Status Start: 11/04/20 12:29 Freq: NEEDED Status: Active Protocol: Document 11/04/20 12:35 [facility] (Rec: 11/04/20 12:52 [facility] [id number]) Medical Review Prior Functional Status Medical History Reviewed Yes Communication Independent Mobility and Gait Independent without a device but heavily relied on pain medication in order to get around. Activities of Daily Living and IADL's Heavily relied on pain medications so able to do ADL and IADl needs. Social History Household Members spouse Living Arrangements House Number of Floors (Floors) One Floor Number of Stairs To Enter/Railing? Pt states has one 1/2 step and then landing and then another 1/2 step in order to get into the house. Home Environment Standard Height Toilet,Walk in Shower,Tub/Shower Home Equipment Front Wheel Walker,Straight Cane,Shower Seat without Backrest,Sock Aid M2 OT-IP Current Condition Start: 11/04/20 12:34 Freq: Status: Active Protocol: Document 11/04/20 12:35 [facility] (Rec: 11/04/20 12:52 [facility] [id number]) Occupational Therapy Current Condition Current Condition Evaluation Date 11/04/20 Treatment Diagnosis s/p L4-5, L5-S1 TLIF Diagnosis Onset Date 11/03/20 Post Operative Precautions Abdominal Surgery Precautions Log Roll,Lifting Restrictions, Gait Belt above Incisional Area M3 OT- IP Subjective and Pain Start: 11/04/20 12:34 Freq: Status: Active Protocol: Document 11/04/20 12:35 [facility] (Rec: 11/04/20 12:52 [facility] [id number]) OT- Subjective Occupational Therapy Visit Type Type Initial Evaluation Visit Start Time 843 Visit Stop Time 950 Total Visit Minutes 67 Occupational Therapy Visit Comments Patient Comments Pt agreed to get up. Pt's in the room. Nursing aware pt had emesis prior to getting up. Nursing aid came in to assist. Patient/Caregiver Goals To go home. OT Pain Assessment Pain When Pain Assessed At Rest Pain Present Pain Present Pain Reported Location Back Intensity 9 Scale Used Numeric (0 - 10) M4 OT- IP ADL's Start: 11/04/20 12:34 Freq: Status: Active Protocol: Document 11/04/20 12:35 [facility] (Rec: 11/04/20 12:52 [facility] [id number]) OT [id number] Comments OT Self-Feeding Comments Not at meal time, no issued noted. OT ADL-Grooming General Evaluation Grooming Ability Standby Assistance Areas Needing Assistance Retrieving/Set-up of Grooming Items Comments OT Grooming Comments While seated. Able to educated pt when standing best to spit into a cup or hinge at her hips to lean to spit into the sink to best follow her back precautions. OT ADL-Oral Care General Eval Oral Care Ability Independent OT ADL-Dressing General Eval Lower Body Dressing Ability Maximum Assistance Areas Needing Assistance Socks Comments OT Dressing Comments Started educated pt on LB dressing needs and need for equipment. OT ADL-Toileting Comments OT Toileting Comments Muller in place. OT ADL-Bathing Bathing Type Bathing Type Sponge Bath Comments OT Bathing Comments Pt states to shower tomorrow. Pt able to assist to sponge off as got emesis on her gown and needed to be cleaned and changed. M5 OT- IP IADL's Start: 11/04/20 12:34 Freq: Status: Active Protocol: Document 11/04/20 12:35 [facility] (Rec: 11/04/20 12:52 [facility] [id number]) OT-Instrumental Activities of Daily Living Home Safety Awareness Awareness of Need for Assistance at Home Good Awareness Ability to Problem Solve Emergency Able to Problem Solve Situations Home Safety Comments Pt a little groggy and initially will need her to provide at least supervision for needs of bills/medications and assist for IADl needs. M6 OT- IP Functional Cognition Start: 11/04/20 12:34 Freq: Status: Active Protocol: Document 11/04/20 12:35 [facility] (Rec: 11/04/20 12:52 [facility] [id number]) Cognitive Factors Limiting Selfcare Function Cognitive Ability Level of Alertness Alert,Confusional State Patient Orientation Name,Place,Situation Attention Span Ability Capable of Focused Attention, Capable of Sustained Attention Ability to Follow Commands Able to Follow One Step Commands with Increased Time, Able to Follow One Step Commands with Repetition Safety Awareness Decreased Ability to Apply Precautions,Underestimates Need for Assistance Problem Solving Ability Needs Assist to Identify Solutions Cognitive Comments Cognitive Assessment Comments Pt very groggy and having trouble following directions. Pt needing step by step commands. Pt is impulsive and tends to want to direct her own care. OT- Vision and Hearing OT- Hearing Assessment OT- Hearing Assessment WFL OT- Vision Assessment Visual Acuity Glasses All The Time M7 OT- IP Mobility and Balance Start: 11/04/20 12:34 Freq: Status: Active Protocol: Document 11/04/20 12:35 [facility] (Rec: 11/04/20 12:52 [facility] [id number]) OT- Bed Mobility Assessment Rolling Type of Rolling Roll to Right Level of Assistance Contact Guard Assistance Supine to Sit Supine to Sit Assist Minimal Assistance Sit to Supine Sit to Supine Assist Minimal Assistance Scooting Scooting to Edge of Bed Contact Guard Assistance OT-Transfer Assessment Sit to and From Stand Sit to and from Stand Contact Guard Assistance Transfers Transfer Ability Contact Guard Assistance Technique Transfer Destination Bed,Chair Transfer Technique Stand Step Pivot Devices Transfer Assistive Devices Gait Belt,Front Wheeled Walker Comments Mobility Comments BRISEIDA for bed mobility and CGA with transfer with FWW. Pt not able to get comfortable in the chair and wanting to get back to bed. OT- Gait Assessment Comments Gait Ability Comments CGA with FWW in the room. OT- Balance Assessment Sitting Balance and Reactions Static Sitting Balance Ability Normal Dynamic Sitting Balance Ability Good Standing Balance and Reactions Static Standing Balance Ability Fair M8 OT- IP Objective Assessments Start: 11/04/20 12:34 Freq: Status: Active Protocol: Document 11/04/20 12:35 [facility] (Rec: 11/04/20 12:52 [facility] [id number]) OT Gross Range of Motion Upper Extremity Range of Motion Assessment Within Functional Limits M9 OT- IP Assessment and Plan Start: 11/04/20 12:34 Freq: Status: Active Protocol: Document 11/04/20 12:35 [facility] (Rec: 11/04/20 12:52 [facility] [id number]) OT Summary Assessment and Plan Potential Rehabilitation Potential Good Analytic Complexity at Evaluation Low Summary OT Impairments Pain,Balance,Functional Cognition,Functional Mobility, Grooming,Dressing,Toileting, Bathing,Toilet Transfers, Shower Transfers,Activity Tolerance Progress Towards Goals Slow Progress due to Pain,Slow Progress due to Cognition Assessment Summary Pt low complexity and main barriers are steps, a bit groggy from pain medications, pain, and a bit impulsive. Pt has a supportive to assist. To go over caregiver training with pt and for showering needs tomorrow. Pending caregiver training and if pt medically stable, pt looking to go home with assist . Goals Self-Feeding Goal Independent Grooming Goal Independent Dressing Goal Independent Toileting Goal Independent Bathing Goal Independent Toilet Transfer Goal Independent Shower Transfer Goal Independent Patient/Caregiver Education Goal Demonstrate Post-Op Precautions,Caregiver Independent Assisting Patient Days to Meet Goals 5 Frequency of Treatment Frequency Of Treatment Once a Day Treatment Plan OT Treatment Plan ADL Training,Functional Cognition Training,Functional Mobility,Patient/Family Education,Discharge Planning Other Treatment Recommendations and Next Caregiver training and shower. Treatment Focus Discharge Recommendations OT Discharge Recommendations Home with 24/ Assist Available Home Equipment Needs refueler, long handled shoe horn and sponge Transportation Needs at Discharge Private Vehicle
--- NOTE | 2020-11-04 09:55 | PC.NURSE ---
Patients dressing to lower back is cdi, she was given tramadol for pain and this has seemed to help her some, she complains of a headache. Imitrex give sq in her arm. This is ordered every 2 hours as needed. U/A showed nitrates present in urine, patient has been started on po antibiotics. She is a bit confused, possibly from pain medication and uti. Cooperative with care, some of the things she is saying do not make sense. is at bedside and helpful with patients care. She denies numbness or tingling and is sitting up in the chair now. Patient has been heplocked. She was nauseous earlier and zofran given, seems to have helped with patients nausea as she was able to keep her medications down.
--- NOTE | 2020-11-04 10:38 | PT.IIE ---
Current Diagnoses Spinal stenosis, lumbar region with neurogenic claudication (11/03/20) Surgery Performed Operation Date: 11/03/20 12:45 Actual Procedures p L4-5, L5-S1 TLIF w. posterior instrumentation - Jocelynn Sanchez MD Medical History (Last Reviewed 11/04/20 @ 08:36 by Nay Isaacs PA-C) Anxiety Diabetes Easy bruisability Eye pressure Hard of hearing HLD (hyperlipidemia) HTN (hypertension) Physical Therapy Inpatient Evaluation/Re-Eval M1 PT/OT-IP Prior Functional Status Start: 11/04/20 12:29 Freq: NEEDED Status: Active Protocol: Document 11/04/20 10:38 [facility] (Rec: 11/04/20 12:42 [facility] [id number]) Medical Review Prior Functional Status Medical History Reviewed Yes Communication able to make needs known but with confusion Mobility and Gait pt stated that she is independent with all mobilities and ambulation without AD Social History Household Members spouse Living Arrangements House Number of Floors (Floors) One Floor Number of Stairs To Enter/Railing? 2 platform steps to enter the house Home Environment Standard Height Toilet,Walk in Shower,Tub/Shower Home Equipment Front Wheel Walker,Hand Held Shower Additional Social History Comment pt has a bidet pt has a hurrycane M2 PT-IP Current Condition Start: 11/04/20 12:29 Freq: NEEDED Status: Active Protocol: Document 11/04/20 10:38 [facility] (Rec: 11/04/20 12:42 [facility] [id number]) Physical Therapy Current Condition Current Condition Evaluation Date 11/04/20 Treatment Diagnosis s/p L4-5, L5-S1 fusion/lami; difficulty in walking Onset Date 11/03/20 Precautions Lumbar Precautions Log Roll,No Twisting,Limit Bending,Lifting Restriction of 10 lbs,Gait Belt above Incisional Area Other Precautions falls M3 PT-IP Subjective Start: 11/04/20 12:29 Freq: NEEDED Status: Active Protocol: Document 11/04/20 10:38 [facility] (Rec: 11/04/20 12:42 [facility] [id number]) Subjective Physical Therapy Visit Type Type Initial Evaluation Visit Start Time 10:38 Visit Stop Time 12:06 Total Visit Minutes 28 Notes split visits: 1038 am to 1045 and 1145 to 1206 pm Number of GAS PIPE LAYER Visits 0 Physical Therapy Visit Comments Patient Comments stated that she has a UTI, back surgery and has a migraine and c/o of pain on her back, groin/abdominal area and h/a. Therapy Pain Assessment Pain When Pain Assessed At Rest Pain Present Pain Present Pain Reported Location Back Scale Used pain scale not stated Pain Behaviors Facial Grimacing,Guarding, Holding Area,Moaning,Wincing Pain Management Techniques Apply Cold,Distraction, Modification of Treatment,Re- positioning,Timing of Activity with Medications M4 PT-IP Mobility and Gait Start: 11/04/20 12:29 Freq: NEEDED Status: Active Protocol: Document 11/04/20 10:38 [facility] (Rec: 11/04/20 12:42 [facility] [id number]) PT-Bed Mobility Assessment Rolling Type of Rolling Log Rolling Level of Assist Moderate Assistance Supine to Sit Supine to Sit Moderate Assistance PT-Transfer Assessment Sit to and From Stand Sit to and from Stand Minimal Assistance,1 Person Assistance,Use of Upper Extremities Equipment Transfer Assistive Device Gait Belt,Front Wheeled Walker Orthotic/Prosthetic Devices or Brace: No Transfers Transfer Destination Chair Transfer Technique ambulated using FWW Transfer Ability Level of Assist Minimal Assistance,1 Person Assistance,Use of Upper Extremities Comments Mobility Comments educated pt on back precautions. pt with confusion and can be impulsive and needs constant cues for safety. spouse in room with pt. pt has a UTI and nurse stated that is contributing to mentation. completed log roll supine to sit mod A and max cues. completed sit to stand min A and ambulated in room using FWW min A ~40 ft. pt agreed to sit on chair. positioned on chair. call light and table placed within reach. Gait Assessment Gait Gait Assistance Required: Minimum Assistance,1 Person Assist Distance (Feet) 40 Able to Maintain Weight Bearing Status Yes During Gait Assistive Devices Assistive Device Gait Belt,Front Wheeled Walker Orthotic/Prosthetic Devices or Brace: No Factors Limiting Gait Function Factors Limiting Gait Function Decreased Activity Tolerance, Decreased Strength,Difficulty Following Directions,Limited Range of Motion,Pain,Poor Balance,Poor Safety Awareness PT-Balance Assessment Sitting Balance and Reactions Static Sitting Balance Ability Good Dynamic Sitting Balance Ability Good Standing Balance and Reactions Static Standing Balance Ability Fair Dynamic Standing Balance Ability Fair Device Used FWW M5 PT-IP Objective Assessments Start: 11/04/20 12:29 Freq: NEEDED Status: Active Protocol: Document 11/04/20 10:38 [facility] (Rec: 11/04/20 12:42 [facility] [id number]) Orientation Orientation/Cognition Level of Alertness Confusional State Orientation Name,Place,Situation Safety Awareness Decreased Safety Awareness Memory Description Short Term Impaired Gross Range of Motion Lower Extremity ROM Assessment Within Functional Limits Strength Lower Extremity Strength Assessment Within Functional Limits Coordination Assessment Gross Coordination Gross Coordination WNL Sensation Assessment Sensation Gross Sensation WNL Muscle Tone Muscle Tone WNL Yes M6 PT-IP Treatment Start: 11/04/20 12:29 Freq: NEEDED Status: Active Protocol: Document 11/04/20 10:38 [facility] (Rec: 11/04/20 12:42 AB [id number]) Physical Therapy Treatment Education Education Provided Precautions,Weight Bearing Status,Safety M7 PT-IP Assessment and Plan Start: 11/04/20 12:29 Freq: NEEDED Status: Active Protocol: Document 11/04/20 10:38 [facility] (Rec: 11/04/20 12:42 AB [id number]) PT Summary Assessment and Plan Potential Rehabilitation Potential Good Status of Condition at Evaluation Evolving Summary Impairments Pain,ROM,Strength,Balance, Coordination,Sensation,Tone, Cognition,Bed Mobility, Transfers,Gait,Activity Tolerance Assessment Summary pt requiring mod A with bed mobility and min A for transfers and ambulation using FWW. requires cues for safety due to confusion and impulsiveness. will conduct caregiver training and stair climbing training when appropriate. Goals Bed Mobility Goal Standby Assistance Transfer Goal Standby Assistance,Front Wheeled Walker Gait Goal Standby Assistance,Front Wheel Walker Gait Distance 40 Other Goals up/down 2 platform steps using FWW SBA Days to Meet Goals 5 Frequency of Treatment Frequency Of Treatment Twice a Day Treatment Plan Physical Therapy Treatment Plan Bed Mobility Training,Transfer Training,Gait Training, Therapeutic Exercise,Balance Retraining,Post Op Education, Discharge Planning,Hot or Cold Pack,Neuromuscular Re-ed, Coordination Retraining,Manual Therapy Precautions Lumbar Precautions Log Roll,No Twisting,Limit Bending,Lifting Restriction of 10 lbs,Gait Belt above Incisional Area Other Precautions falls Recommendations To Nursing Amount of Assist Needed 1 Person Assist Discharge Recommendations PT Discharge Recommendations Home with 24/ Assist Available Transportation Needs at Discharge Private Vehicle
[2020-11-04] MEDS: ACETAMINOPHEN 325 MG TABLET 650 MG PO (11:31)
--- NOTE | 2020-11-04 15:03 | PT.IPTN ---
Current Diagnoses Spinal stenosis, lumbar region with neurogenic claudication (11/03/20) Surgery Performed Operation Date: 11/03/20 12:45 Actual Procedures p L4-5, L5-S1 TLIF w. posterior instrumentation - Jocelynn Sanchez MD Physical Therapy Treatment Note M2 PT-IP Current Condition Start: 11/04/20 12:29 Freq: NEEDED Status: Active Protocol: Document 11/04/20 14:33 MA (Rec: 11/04/20 15:03 MA [id number]) Physical Therapy Current Condition Current Condition Evaluation Date 11/04/20 Treatment Diagnosis s/p L4-5, L5-S1 fusion/lami; difficulty in walking Onset Date 11/03/20 Precautions Lumbar Precautions Log Roll,No Twisting,Limit Bending,Lifting Restriction of 10 lbs,Gait Belt above Incisional Area Other Precautions falls M3 PT-IP Subjective Start: 11/04/20 12:29 Freq: NEEDED Status: Active Protocol: Document 11/04/20 14:33 MA (Rec: 11/04/20 15:03 MA [id number]) Subjective Physical Therapy Visit Type Type Treatment Note Visit Start Time 14:00 Visit Stop Time 14:30 Total Visit Minutes 30 Number of MOVIE EXTRA Visits 1 Physical Therapy Visit Comments Patient Comments Pt states that she thinks her migranes have been from lack of caffeine since she usually has 4 espresso shots daily. She had coffee at lunch and hasn't thrown up or had a headache sinces so she thinks she will do great with therapy this afternoon. Therapy Pain Assessment Pain When Pain Assessed At Rest Pain Present Pain Present Pain Reported Location Back Scale Used pain scale not stated Pain Behaviors Facial Grimacing Pain Management Techniques Apply Cold,Distraction, Modification of Treatment,Re- positioning,Timing of Activity with Medications M4 PT-IP Mobility and Gait Start: 11/04/20 12:29 Freq: NEEDED Status: Active Protocol: Document 11/04/20 14:33 MA (Rec: 11/04/20 15:03 MA [id number]) PT-Bed Mobility Assessment Rolling Type of Rolling Log Rolling Level of Assist Contact Guard Assistance Supine to Sit Supine to Sit Minimal Assistance Sit to Supine Sit to Supine Minimal Assistance Scooting Scooting to Edge of Bed Contact Guard Assistance PT-Transfer Assessment Sit to and From Stand Sit to and from Stand Contact Guard Assistance,1 Person Assistance,Use of Upper Extremities Equipment Transfer Assistive Device Gait Belt,Front Wheeled Walker Orthotic/Prosthetic Devices or Brace: No Transfers Transfer Destination Bed Transfer Technique Stand Step Pivot Transfer Ability Level of Assist Contact Guard Assistance,1 Person Assistance,Use of Upper Extremities Comments Mobility Comments Educated pt and on spinal precautions. Pt required CGA for log roll and Min A for Sl>sitting EOB. Pt was then able to sit>stand CGA with gait belt and front wheel walker with cues to push off bed with UEs. Pt walked 10ft to single step in room where she was able to step up with assistance for lifting walker onto step and cues to allow to help lift walker at home due to spinal precautions. She ascended stepping up fwd and descended stepping down backwards to avoid bending. Pt states she will only have to ascend single step landing at home and then will not be leaving home for a few weeks to recover. Pt then ambulated ( see below for comments) and returned to bed demonstrating good technique with verbal cues and CGA to return to SL and log roll to supine. Gait Assessment Gait Gait Assistance Required: Standby Assistance Distance (Feet) 220 Able to Maintain Weight Bearing Status Yes During Gait Assistive Devices Assistive Device Gait Belt,Front Wheeled Walker Orthotic/Prosthetic Devices or Brace: No Factors Limiting Gait Function Factors Limiting Gait Function Decreased Strength,Difficulty Following Directions,Limited Range of Motion,Pain,Poor Balance,Poor Safety Awareness Comments Gait Comments Pt was able to ambulate 10 ft in room and then 210 ft outside of room today with gait belt and FWW SBA. She requires verbal cues to avoid twisting to speak to nurses in hallway during gait training. Stair Climbing Assessment Evaluation Level of Assist On Stairs Contact Guard Assistance Devices Stair Climbing Assistive Devices Front Wheel Walker Technique/Endurance Stair Climbing Direction Ascend and Descend Stair Climbing Technique Step to Step Number of Steps Climbed 1 Stair Climbing Set # Repetitions (reps) 2 Comments Stair Climbing Comments Pt was able to step up CGA with gait belt and FWW. PT's in room and encouraged to participate with PT but refuses at this time. Verbally talked through best practices for assisting pt if needed at home. Pt steps up fwd, step-to pattern and descends stepping posteriorly step-to in order to follow spinal precautions and avoid bending to reach walker. PT-Balance Assessment Sitting Balance and Reactions Static Sitting Balance Ability Good Dynamic Sitting Balance Ability Good Standing Balance and Reactions Static Standing Balance Ability Good Dynamic Standing Balance Ability Fair Device Used FWW M5 PT-IP Objective Assessments Start: 11/04/20 12:29 Freq: NEEDED Status: Active Protocol: Document 11/04/20 10:38 AB (Rec: 11/04/20 12:42 AB [id number]) Orientation Orientation/Cognition Level of Alertness Confusional State Orientation Name,Place,Situation Safety Awareness Decreased Safety Awareness Memory Description Short Term Impaired Gross Range of Motion Lower Extremity ROM Assessment Within Functional Limits Strength Lower Extremity Strength Assessment Within Functional Limits Coordination Assessment Gross Coordination Gross Coordination WNL Sensation Assessment Sensation Gross Sensation WNL Muscle Tone Muscle Tone WNL Yes M6 PT-IP Treatment Start: 11/04/20 12:29 Freq: NEEDED Status: Active Protocol: Document 11/04/20 14:33 MA (Rec: 11/04/20 15:03 MA [id number]) Physical Therapy Treatment Education Education Provided Precautions,Weight Bearing Status,Safety M7 PT-IP Assessment and Plan Start: 11/04/20 12:29 Freq: NEEDED Status: Active Protocol: Document 11/04/20 14:33 MA (Rec: 11/04/20 15:03 MA [id number]) PT Summary Assessment and Plan Potential Rehabilitation Potential Good Status of Condition at Evaluation Evolving Summary Impairments Pain,ROM,Strength,Balance, Coordination,Sensation,Tone, Cognition,Bed Mobility, Transfers,Gait,Activity Tolerance Assessment Summary Pt requires CGA-MIN A for bed mobility and SBA for gait. She completes stair training this session and is able to repeat her spinal precautions at end of session. encouraged to participate in PT but states he knows what to do so MOVIE EXTRA verbally discusses best practices for single stair at home and for getting into/out of bed and car. Pt requires cues throughout session to avoid twisting while talking to PT or nurses in hallway during gait training. She has improved since AM session and was able to complete stair training and ambulation goals. Nurse notified of pt's improved therapy status and left with all needs within reach, bed alarm donned, and present in room. Goals Bed Mobility Goal Standby Assistance Transfer Goal Standby Assistance,Front Wheeled Walker Gait Goal Standby Assistance,Front Wheel Walker Gait Distance 40 Other Goals up/down 2 platform steps using FWW SBA Days to Meet Goals 5 Frequency of Treatment Frequency Of Treatment Twice a Day Treatment Plan Physical Therapy Treatment Plan Bed Mobility Training,Transfer Training,Gait Training, Therapeutic Exercise,Balance Retraining,Post Op Education, Discharge Planning,Hot or Cold Pack,Neuromuscular Re-ed, Coordination Retraining,Manual Therapy Precautions Lumbar Precautions Log Roll,No Twisting,Limit Bending,Lifting Restriction of 10 lbs,Gait Belt above Incisional Area Other Precautions falls Recommendations To Nursing Amount of Assist Needed 1 Person Assist Discharge Recommendations PT Discharge Recommendations Home with 24/ Assist Available Transportation Needs at Discharge Private Vehicle
--- NOTE | 2020-11-04 16:48 | CM.DANOTE ---
DCP/Assessment: Reviewed chart. Patient is a 70yr old female admitted to [facility] for elective spine surgery. PCP is Dr. Aguilar. Primary payor is 1)Medicare 2)[employer]. Met with patient explained CM/SW role. Patient reports that she hopes to d/c home tomorrow. Patient reports that she plans to d/c home with supportive family. Patient resides in [facility] with spouse. Prior to admit patient I in all ADL's. Patient interested in obtaining DME for use at home. INTERNET CONSULTANT updated OT and they plan to f/u with patient in AM tomorrow. P: Home when stable. HARMAN Morales Discharge Planning/Care Management Advanced directive, confirm from FAMILY Start: 11/03/20 18:49 Freq: Q24H Status: Active Protocol: Document 11/03/20 18:49 EE (Rec: 11/03/20 20:20 EE [id number]) Advance Directive, confirm on record Time 20:20 Person contacted Patient's Copy received No CM Discharge Assessment Start: 11/04/20 16:46 Freq: Status: Active Protocol: Document 11/04/20 16:46 KJS (Rec: 11/04/20 16:48 KJS [id number]) Discharge Planning Assessment Assigned Senior Accounting Specialist HARMAN Morales Contact Information Rah Story (spouse) # Advance Directives? Yes Advance Directives on File No History Provided By Patient,Medical Record Prior Living Arrangements House Household Members spouse Type of transporation used prior to Drives own vehicle admit Independent with ADL's Yes Is patient alert and oriented? Yes Caregiver for Another No DME Already Rented / Owned FWW / Walker,Cane Barriers to Discharge No Discharge Plan Home Transportation Arrangement Family to provide transport. Whiteboard Updated in Patient Room with Yes name and ext. # of Senior Accounting Specialist Review Status In Process Next Review Type Continued Stay Review Pre-Anesthesia Assessment Start: 10/27/20 09:47 Freq: Status: Complete Protocol: Document 10/27/20 09:47 CAB (Rec: 10/27/20 10:44 CAB [id number]) Pre-Anesthesia Assessment Patient Information Reviewed Via Phone Assessment Assessment Completed With Patient Diagnostic Results BMP/CMP,CBC,EKG,PT/INR,Other Comment Outside labs/EKG scanned, COVID screen @ 11/02/20 Primary Care Provider Lisandro Aguilar Medical Clearance Received Yes Seen Specialist in Last 12 Months Yes Specialist Seen Orthopedist Comment PCP pre-op clearance 09/08/20 scanned Primary Language 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 Small Products Required No Height 157.48 cm Weight 76.204 kg Body Mass Index (BMI) 30.7 Hearing Ability Hard of Hearing,Use of Hearing Aid Visual Assist Glasses Dentition Type Teeth, Natural Present Barriers to Learning None Hx Anesthesia Reactions No Hx Family Anesthesia Reaction No Hx Malignant Hyperthermia No Hx Blood Transfusions No Anesthesia Review Requested No alcohol intake current alcohol intake frequency a few times a week Smoking Status Never smoker Substance Use Type does not use Pain Present Pain Reported Musculoskeletal Symptoms Back Pain History of Falling (Recent or History of Yes ) Patient is completely paralyzed or No completely immobile Mental Status Oriented to own ability Is patient on oxygen? No Does patient have CARROLL/SOB No Hx Sleep Apnea No Currently Taking a Beta Astrid No Can You Climb a Flight of Stairs Without Yes SOB Hx Chest Pain No Hx SOB No Hx Syncope or Dizziness No Anti-Coagulant Therapy No Has a Inspector Balance Truing No Cardiac Testing No Hx Pacemaker/ICD No Pacemaker Rep Required? No Cardiac Clearance Received Not Applicable Comment Currently swimming 3x/week Diet Type At Home Regular dysphagia No Urinary Catheter Present No Hx Urinary Self Catheterization No Diabetes Yes HgbA1C 7.3 Date 09/07/20 Patient No Lactating No Hx Drug Resistant Organism No Presence of External or Internal Medical Yes: Bilat eye lens, hearing Devices aids Have you had any close contact with No someone diagnosed with COVID-19? Marital Status Lives With spouse Prior Living Arrangements House Number of Floors (Floors) One Floor Support System Spouse Does the Patient Have Assistance After Yes Surgery Patient Discharge Plan Description Return Home Comment Pt not advised length of stay per surgeon Feels Safe in Current Environment Yes Been Physically Hurt or Threatened By a No Person in Current Environment Do you have thoughts of harming yourself None or others? Are you currently considering suicide? No Do you have a plan to hurt yourself or No Plan others? Do You Have Any Spiritual Beliefs That No May Affect Your HC Choices? Do You Have Any Cultural Practices That No May Affect Your HC Choices? Comment Zoroastrian Who Can We Speak to About Patient's Care Family, friends Identifying Code for Release of Patient Declines to issue Information Health Care Proxy/Next of Kin Rah () Health Care Proxy Emergency Contact Name Rah () Jacquelin ( daughter) Emergency Contact Phone Number Rah: [phone] Jacquelin: [phone] Advance Directives? Yes Advance Directives on File No Requested Patient Bring Advanced Yes Directives DOS Power of Edger Saw Operator Yes Power of Edger Saw Operator Name Rah () Power of Edger Saw Operator PAC Instructions Diabetes instructions,Do not shave/clip surgical site, Durable medical equipment, Medications to take/avoid, Nasal antibiotic,No ETOH/ petroleum product on skin DOS, NPO,Post-op transportation,Pre -surgical wash,Sensory aids, Sturdy shoes/comfortable clothes,Do not bring valuables and remove jewelry
[2020-11-04] MEDS: ATORVASTATIN 20 MG TABLET 10 MG PO (19:50)
[2020-11-04] MEDS: NORTRIPTYLINE 10 MG CAPSULE PO (19:52)
[2020-11-04] MEDS: TRAZODONE 100 MG TABLET PO (19:52)
[2020-11-04] MEDS: SENNOSIDES 8.6 MG TABLET 17.2 MG PO (19:52)
[2020-11-04] MEDS: LATANOPROST 0.005% OPHTH 2.5 ML 1 DROPS EYE-BOTH (19:56)
[2020-11-04] MEDS: INSULIN LISPRO 100 UNIT/ML 3ML VIAL SUBCUT (21:56)
[2020-11-05] MEDS: TRAMADOL 50 MG TABLET PO ×2 (04:24→10:48)
[2020-11-05 04:40] VITALS: BP 132/81; PULSE 105; RESP 20; TEMP 36.2; O2SAT 92
--- NOTE | 2020-11-05 07:16 | PM.PNPO.1 ---
Subjective Subjective Date Patient Seen: 11/05/20 Time Patient Seen: 07:17 Interval history: Patient's pain is mild. She denies fevers or chills. No nausea and vomiting since yesterday. She notes she is feeling better after starting the Bactrim for her UTI. Her pain is well managed with oral tramadol and Tylenol. She is using occasional muscle relaxer. Her headache has resolved. The patient like to go home today. Exam Vital Signs (past 8 hours): - 11/04/20 23:30 11/05/20 04:40 Temperature 98.2 F 97.1 F L Pulse Rate 92 H 105 H Respiratory Rate 18 20 Blood Pressure 135/87 132/81 Pulse Oximetry 94 92 Oxygen Delivery Method Room Air Oxygen Flow Rate 0 Narrative Exam Narrative: Pleasant 70-year-old female resting comfortably in the chair in no apparent distress. Motor function is intact bilateral lower extremities. Sensation grossly intact to light touch in bilateral lower extremities. Both legs are warm and dry. Scant drainage on the dressing otherwise intact. Objective Labs Result Diagrams: 11/04/20 06:21 [facility] Medical History Anxiety Diabetes Easy bruisability Eye pressure Hard of hearing HLD (hyperlipidemia) HTN (hypertension) Surgical History History of ear surgery History of hysterectomy History of tonsillectomy Hx of bilateral cataract extraction Social History household members: spouse Smoking Status: Never smoker alcohol intake: current Assessment & Plan Post-op Postoperative Procedures: Procedures Operation Date: 11/03/20 12:45 Actual Procedure Side Surgeon p L4-5, L5-S1 TLIF w. posterior instrumentation Jocelynn Sanchez MD Postoperative status narrative: Status post stable lumbar fusion. Postoperative plan narrative: Mobilize with physical therapy. Limit bending, twisting and lifting. Disposition home today. Quality VTE Deep Vein Thrombosis/Pulmonary Embolism Present on Admission: No
--- NOTE | 2020-11-05 07:23 | PM.DS.1 ---
History of Present Illness History of Present Illness Chief complaint: Translaminar Interbody Fusion/Laminotomy *OPB* Discharge Providers Provider Date of admission: 11/03/20 10:56 Primary care physician: Lisandro Aguilar MD Consults: 11/03/20 18:30 Consult to Occupational Therapy Evaluate & Treat Comment: Physician Instructions: Evaluate and treat Consult to Physical Therapy Evaluate & Treat Comment: Physician Instructions: Evaluate and Treat Discharge provider: Nay Isaacs PA-C Exam Vital Signs (past 8 hours): - 11/04/20 23:30 11/05/20 04:40 Temperature 98.2 F 97.1 F L Pulse Rate 92 H 105 H Respiratory Rate 18 20 Blood Pressure 135/87 132/81 Pulse Oximetry 94 92 Oxygen Delivery Method Room Air Oxygen Flow Rate 0 Objective Labs Result Diagrams: 11/04/20 06:21 PFS Medical History Anxiety Diabetes Easy bruisability Eye pressure Hard of hearing HLD (hyperlipidemia) HTN (hypertension) Surgical History History of ear surgery History of hysterectomy History of tonsillectomy Hx of bilateral cataract extraction Social History household members: spouse Smoking Status: Never smoker alcohol intake: current Discharge Plan Discharge orders & Medications Prescriptions: No Action simvastatin 10 MG tablet 10 mg PO HS Qty: 0 RF: 0 lisinopril 20 MG tablet 20 mg PO BID Qty: 0 RF: 0 trazodone 100 MG tablet 100 mg PO HS Qty: 0 RF: 0 nortriptyline [Pamelor] 10 MG capsule 10 mg PO HS Qty: 0 RF: 0 duloxetine [Cymbalta] 60 MG capsule,delayed release(DR/EC) 60 mg PO QDAY Qty: 0 RF: 0 gabapentin [Neurontin] 300 MG capsule 600 mg PO TID Qty: 0 RF: 0 Januvia 100 MG tablet 100 mg PO QDAY Qty: 0 RF: 0 latanoprost [Xalatan] 0.005 % drops 1 drp EYE-BOTH BID Qty: 0 RF: 0 glyburide 5 mg Tablet 5 mg PO BID RF: 0 timolol 0.5 % Drops 1 drp EYE-BOTH BID RF: 0 pioglitazone 30 mg Tablet 30 mg PO DAILY RF: 0 Jardiance 25 mg Tablet 25 mg PO QAM RF: 0 Trulicity 0.75 mg/0.5 mL Pen Injector 0.75 mg SUBCUT QWEEK RF: 0 naproxen sodium [Aleve] 220 mg Capsule 440 mg PO BID RF: 0 Follow up/Referrals: Lisandro Aguilar MD [Primary Care Provider] - Discharge Data Primary Care Provider: Lisandro Aguilar V Quality VTE Deep Vein Thrombosis/Pulmonary Embolism Present on Admission: No
[2020-11-05 07:33] VITALS: BP 141/78; PULSE 90; RESP 17; TEMP 36.7; O2SAT 94
--- NOTE | 2020-11-05 07:34 | P.DS_ITS ---
History of Present Illness History of Present Illness Date Patient Seen: 11/05/20 Time Patient Seen: 07:35 Chief complaint: Translaminar Interbody Fusion/Laminotomy *OPB* Narrative: Refer to previous HPI. Discharge Providers Provider Date of admission: 11/03/20 10:56 Discharge Date: 11/05/20 Primary care physician: Lisandro Aguilar MD Consults: 11/03/20 18:30 Consult to Occupational Therapy Evaluate & Treat Comment: Physician Instructions: Evaluate and treat Consult to Physical Therapy Evaluate & Treat Comment: Physician Instructions: Evaluate and Treat Discharge provider: Osorio Montes PA-C Summary Hospital Course Discharge Diagnosis: At L4-5, L5-S1 spinal stenosis L4-5, L5-S1 spondylosis with radiculopathy Status post L4-5, L5-S1 Postero-lateral and posterior interbody fusion 2. L4-5, L5-S1 interbody cage placement. 3. L4-5, L5-S1 decompressive laminectomy with bilateral facetecomies 4. L4-5, L5-S1 Posterior segmental instrumentation 5. [place] of bone marrow from iliac crest 6. Utilization of microsurgical technique and operating microscope Hospital Course: Patient was admitted to the hospital following the above-listed procedure for the above-listed diagnosis. Following the procedure the patient has been convalescing appropriately in her pain has been managed with current pain management regimen. Dressing over the incision site has remained clean, dry, and intact following surgery. Throughout the course of time in hospital the patient has denied fever, chills, chest pain, shortness of breath, or urinary retention. Patient initially complained of nausea but those symptoms have since resolved. Urine culture from early in her stay resulted in E coli. Patient was started on Bactrim in the hospital and will be sent home with prescription for 5 day course Bactrim. Patient has successfully worked on ambulation with the assistance of a front wheeled walker with physical therapy. She has remained weight-bearing as tolerated. Status at Discharge Cognitive/behavioral status at discharge: oriented Functional status at discharge: uses cane/walker Overall status at discharge: patient is progressing back to baseline Exam Vital Signs (past 8 hours): - 11/05/20 04:40 Temperature 97.1 F L Pulse Rate 105 H Respiratory Rate 20 Blood Pressure 132/81 Pulse Oximetry 92 Oxygen Delivery Method Room Air Oxygen Flow Rate 0 Narrative Exam Narrative: Pleasant 70-year-old female resting comfortably in the chair in no apparent distress. Motor function is intact bilateral lower extremities. Sensation grossly intact to light touch in bilateral lower extremities. Both legs are warm and dry. Scant drainage on the dressing otherwise intact. Objective Labs Result Diagrams: 11/04/20 06:21 [facility]MERLY [facility] Medical History Anxiety Diabetes Easy bruisability Eye pressure Hard of hearing HLD (hyperlipidemia) HTN (hypertension) Surgical History History of ear surgery History of hysterectomy History of tonsillectomy Hx of bilateral cataract extraction Social History household members: spouse Smoking Status: Never smoker alcohol intake: current Discharge Assessment & Plan Assessment and Plan Assessment: Patient is doing well and is stable. Plan of Treatment: First postoperative visit in clinic is scheduled for 2 weeks following discharge. Current pain management regimen is to be continued as it has adequately controlled the patient's pain level. Patient is to avoid bending, twisting, lifting. Dressing over the incision site can be changed as needed if it becomes damaged or soiled. Avoid soaking the incision site or placing topical ointments over the incision site. Patient is to contact clinic with any concerns or questions. Any increase in drainage, swelling, warmth, pain, or redness around the incision site should be reported to the clinic. Discharge Plan Discharge Plan Patient Disposition: Home Provider Discharge Comment: Patient cleared for discharge pending PT clearance. Discharge orders & Medications Prescriptions: New acetaminophen 325 mg Tablet 650 mg PO Q6HR PRN (Reason: Pain, Mild (1-3)) Qty: 90 RF: 0 sulfamethoxazole-trimethoprim 800-160 mg Tablet 1 tab PO BID Qty: 8 RF: 0 tramadol 50 mg Tablet 50 mg PO QID PRN (Reason: Pain, Moderate (4-6)) Qty: 42 RF: 0 Continued simvastatin 10 MG tablet 10 mg PO HS Qty: 0 RF: 0 lisinopril 20 MG tablet 20 mg PO BID Qty: 0 RF: 0 trazodone 100 MG tablet 100 mg PO HS Qty: 0 RF: 0 nortriptyline [Pamelor] 10 MG capsule 10 mg PO HS Qty: 0 RF: 0 duloxetine [Cymbalta] 60 MG capsule,delayed release(DR/EC) 60 mg PO QDAY Qty: 0 RF: 0 gabapentin [Neurontin] 300 MG capsule 600 mg PO TID Qty: 0 RF: 0 Januvia 100 MG tablet 100 mg PO QDAY Qty: 0 RF: 0 latanoprost [Xalatan] 0.005 % drops 1 drp EYE-BOTH BID Qty: 0 RF: 0 glyburide 5 mg Tablet 5 mg PO BID RF: 0 timolol 0.5 % Drops 1 drp EYE-BOTH BID RF: 0 pioglitazone 30 mg Tablet 30 mg PO DAILY RF: 0 Jardiance 25 mg Tablet 25 mg PO QAM RF: 0 Trulicity 0.75 mg/0.5 mL Pen Injector 0.75 mg SUBCUT QWEEK RF: 0 naproxen sodium [Aleve] 220 mg Capsule 440 mg PO BID RF: 0 Follow up/Referrals: Lisandro Aguilar MD [Primary Care Provider] - Diet/Activity/Treatments Diet: Diet as Tolerated and Regular Activity: Weight-bearing as tolerated. Avoid bending, twisting, lifting. Skin/Wound/Dressing Care Report to your healthcare provider any signs of infection, such as:: chills, fever, night sweats, unusual drainage and unusual redness Dressing: Dressing over the incision site can be changed as needed if it becomes damaged or soiled. Other wound treatment: Avoid soaking the incision site or placing topical ointments over the incision site until completely healed. Visit Report/Discharge Packet Instructions: DI for Heart Failure, DI for Prescription Opioid Use, DI for Transforaminal Lumbar Interbody Fusion Stand Alone Forms: Surgery Discharge Discharge Data Primary Care Provider: Lisandro Aguilar V Quality VTE Deep Vein Thrombosis/Pulmonary Embolism Present on Admission: No
--- NOTE | 2020-11-05 08:03 | CM.DPC ---
DCP Discharge home Per Ortho PA, pt has good pain control on oral meds and ambulating with PT and voiding independently and medically stable to d/c home today with oral medications after PT this morning and no identified barriers to discharge. Per PT, recommending safe d/c home with 16/10 assist with spouse. Plan: Patient to d/c home via spouse POV and outpt PT and 2 week follow up with Ortho team. No SW needs at this time. Shawna Horn MSW
[2020-11-05] MEDS: GABAPENTIN 300 MG CAPSULE 600 MG PO (08:05)
[2020-11-05] MEDS: DULOXETINE 30 MG CAPSULE 60 MG PO (08:05)
[2020-11-05] MEDS: HYDROMORPHONE 2 MG TABLET PO (08:06)
[2020-11-05] MEDS: DOCUSATE 100 MG CAPSULE PO (08:06)
[2020-11-05] MEDS: PIOGLITAZONE 15 MG TABLET 30 MG PO (08:22)
[2020-11-05] MEDS: SITAGLIPTIN 50 MG TABLET 100 MG PO (08:22)
[2020-11-05] MEDS: glyBURIDE 2.5 MG TABLET 5 MG PO (08:23)
[2020-11-05] MEDS: TIMOLOL 0.5% OPHTH 1 DROPS EYE-BOTH (08:24)
[2020-11-05] MEDS: LATANOPROST 0.005% OPHTH 2.5 ML 1 DROPS EYE-BOTH (08:24)
[2020-11-05] MEDS: TRIMETH/SULFA 160/800 (DS) TABLET 1 TAB PO (08:39)
[2020-11-05] MEDS: SODIUM CHLORIDE 0.9% FLUSH 10 ML IV (08:39)
[2020-11-05 08:41] VITALS: BP 132/81; PULSE 105
[2020-11-05] MEDS: lisinopriL 20 MG TABLET PO (08:41)
--- NOTE | 2020-11-05 09:28 | OT.IP.TRT ---
Current Diagnoses Spinal stenosis, lumbar region with neurogenic claudication (11/03/20) Surgery Performed Operation Date: 11/03/20 12:45 Actual Procedures p L4-5, L5-S1 TLIF w. posterior instrumentation - Jocelynn Sanchez MD Occupational Therapy Treatment Note M2 OT-IP Current Condition Start: 11/04/20 12:34 Freq: Status: Active Protocol: Document 11/04/20 12:35 [facility] (Rec: 11/04/20 12:52 [facility] [id number]) Occupational Therapy Current Condition Current Condition Evaluation Date 11/04/20 Treatment Diagnosis s/p L4-5, L5-S1 TLIF Diagnosis Onset Date 11/03/20 Post Operative Precautions Abdominal Surgery Precautions Log Roll,Lifting Restrictions, Gait Belt above Incisional Area M3 OT- IP Subjective and Pain Start: 11/04/20 12:34 Freq: Status: Active Protocol: Document 11/05/20 09:29 [facility] (Rec: 11/05/20 09:36 [facility] [id number]) OT- Subjective Occupational Therapy Visit Type Type Treatment Note Visit Start Time 08:47 Visit Stop Time 09:28 Total Visit Minutes 41 Occupational Therapy Visit Comments Patient Comments Pt wanting to shower. Patient/Caregiver Goals TO go home. OT Pain Assessment Pain When Pain Assessed During Mobility Pain Present Pain Present Pain Reported M4 OT- IP ADL's Start: 11/04/20 12:34 Freq: Status: Active Protocol: Document 11/05/20 09:29 [facility] (Rec: 11/05/20 09:36 [facility] [id number]) OT ADL-Grooming General Evaluation Grooming Ability Standby Assistance OT ADL-Dressing General Eval Upper Body Dressing Ability Independent Lower Body Dressing Ability Standby Assistance Comments OT Dressing Comments Pt able to use marine technician to janett underwear and used slippers. Per pt her slippers fit her feet well and encouraged her to always wear well fitting shoe wear to prevent for falls . OT ADL-Toileting Comments OT Toileting Comments Pt did not have to go. OT ADL-Bathing Bathing Type Bathing Type Shower General Evaluation Bathing Ability Minimal Assistance Comments OT Bathing Comments Assist to wash her back and CGA and use of grab bars while standing to wash. M6 OT- IP Functional Cognition Start: 11/04/20 12:34 Freq: Status: Active Protocol: Document 11/05/20 09:29 [facility] (Rec: 11/05/20 09:36 [facility] [id number]) Cognitive Factors Limiting Selfcare Function Cognitive Ability Level of Alertness Alert Attention Span Ability Capable of Focused Attention, Capable of Sustained Attention Ability to Follow Commands Able to Follow One Step Commands Safety Awareness Underestimates Need for Assistance Cognitive Comments Cognitive Assessment Comments Pt still tends to be impulsive and needing cues to slow down . M7 OT- IP Mobility and Balance Start: 11/04/20 12:34 Freq: Status: Active Protocol: Document 11/05/20 09:29 [facility] (Rec: 11/05/20 09:36 [facility] [id number]) OT-Transfer Assessment Sit to and From Stand Sit to and from Stand Standby Assistance Transfers Transfer Ability Standby Assistance,Contact Guard Assistance Technique Transfer Destination Chair,Shower Stall Transfer Technique Stand Step Pivot Devices Transfer Assistive Devices Gait Belt,Front Wheeled Walker Comments Mobility Comments CGA while stepping over the threshold of the shower. OT- Gait Assessment Comments Gait Ability Comments close SBA with FWW. OT- Balance Assessment Sitting Balance and Reactions Static Sitting Balance Ability Normal Dynamic Sitting Balance Ability Good Standing Balance and Reactions Static Standing Balance Ability Fair Comments Other Balance Tests/Deviations/Treatment Pt had slight LOB in the : shower x2 and able to catch herself and also needing therapist there CGA for her balance. Encouraged her to have her assist for showering needs. M8 OT- IP Objective Assessments Start: 11/04/20 12:34 Freq: Status: Active Protocol: Document 11/04/20 12:35 [facility] (Rec: 11/04/20 12:52 [facility] [id number]) OT Gross Range of Motion Upper Extremity Range of Motion Assessment Within Functional Limits M9 OT- IP Assessment and Plan Start: 11/04/20 12:34 Freq: Status: Active Protocol: Document 11/05/20 09:29 [facility] (Rec: 11/05/20 09:36 [facility] [id number]) OT Summary Assessment and Plan Potential Rehabilitation Potential Good Analytic Complexity at Evaluation Low Summary OT Impairments Pain,Balance,Functional Cognition,Functional Mobility, Grooming,Dressing,Toileting, Bathing,Toilet Transfers, Shower Transfers,Activity Tolerance Progress Towards Goals Progressing Toward Goals Assessment Summary Pt main barrier is that she is impulsive and needing to slow down. Pt to go home with her who will provide 24/7 assist. LB dressing equipment issued minus sock aid ini which she already has. Goals Self-Feeding Goal Independent Grooming Goal Independent Dressing Goal Independent Toileting Goal Independent Bathing Goal Independent Toilet Transfer Goal Independent Shower Transfer Goal Independent Patient/Caregiver Education Goal Demonstrate Post-Op Precautions,Caregiver Independent Assisting Patient Days to Meet Goals 2 Frequency of Treatment Frequency Of Treatment Once a Day Treatment Plan OT Treatment Plan ADL Training,Functional Cognition Training,Functional Mobility,Patient/Family Education,Discharge Planning Discharge Recommendations OT Discharge Recommendations Home with 16/10 Assist Available Transportation Needs at Discharge Private Vehicle
--- NOTE | 2020-11-05 10:33 | PT.IPTN ---
Current Diagnoses Spinal stenosis, lumbar region with neurogenic claudication (11/03/20) Surgery Performed Operation Date: 11/03/20 12:45 Actual Procedures p L4-5, L5-S1 TLIF w. posterior instrumentation - Jocelynn Sanchez MD Physical Therapy Treatment Note M2 PT-IP Current Condition Start: 11/04/20 12:29 Freq: NEEDED Status: Active Protocol: Document 11/04/20 14:33 MA (Rec: 11/04/20 15:03 MA [id number]) Physical Therapy Current Condition Current Condition Evaluation Date 11/04/20 Treatment Diagnosis s/p L4-5, L5-S1 fusion/lami; difficulty in walking Onset Date 11/03/20 Precautions Lumbar Precautions Log Roll,No Twisting,Limit Bending,Lifting Restriction of 10 lbs,Gait Belt above Incisional Area Other Precautions falls M3 PT-IP Subjective Start: 11/04/20 12:29 Freq: NEEDED Status: Active Protocol: Document 11/05/20 10:18 SP (Rec: 11/05/20 11:28 SP [id number]) Subjective Physical Therapy Visit Type Type Treatment Note Visit Start Time 10:18 Visit Stop Time 10:33 Total Visit Minutes 15 Notes completed caregiver training including donning gait belt and any assist requried throughout tx. Number of EQUIPMENT OPERATOR/LABORER Visits 2 Physical Therapy Visit Comments Patient Comments Pt willing to work with therapy. Patient Goals Return home with to assist her. Therapy Pain Assessment Pain When Pain Assessed During Mobility Pain Present Pain Present Pain Reported Location Back Intensity 8 Scale Used no pain scale rating stated- very low Pain Management Techniques Re-positioning,Timing of Activity with Medications M4 PT-IP Mobility and Gait Start: 11/04/20 12:29 Freq: NEEDED Status: Active Protocol: Document 11/05/20 10:18 SP (Rec: 11/05/20 11:28 SP [id number]) PT-Bed Mobility Assessment Rolling Type of Rolling Log Rolling Level of Assist Contact Guard Assistance Supine to Sit Supine to Sit Standby Assistance Sit to Supine Sit to Supine Contact Guard Assistance Scooting Scooting to Edge of Bed Standby Assistance PT-Transfer Assessment Sit to and From Stand Sit to and from Stand Standby Assistance,Use of Upper Extremities Equipment Transfer Assistive Device Gait Belt,Front Wheeled Walker Orthotic/Prosthetic Devices or Brace: No Transfers Transfer Destination Bed,Chair,Toilet Transfer Technique ambulated usign FWW Transfer Ability Level of Assist Standby Assistance,Use of Upper Extremities Comments Mobility Comments Pt seated in chair when arrived. donned gait belt. Sit>Stand SBA using FWW, cued for pushing from chair arms rather than FWW due to can move and education able to hip hinge to bend some if needed with straight back with better understanding. Pt walked further into hallway to PF step (CGA using FWW), around nursing station and back to room approx 240 ft SBA , stable no LOB. Pt completed stand>sit at elevated bed as has at home with use of fWW turned sideways and to stabilize FWW for use of handle as needed sit <>L SL<> supine CGA as needed by for LE repositioning. Pt requested use of bathroom stand<> sit SBA and good use of grab bar for support with stated she has doorframe at home and FWW to use, self pericare, then walked to sink good FWW positioning and back to chair SBA. Pt had call light and all needs within reach and in room before left. Gait Assessment Gait Gait Assistance Required: Standby Assistance Distance (Feet) 240 Able to Maintain Weight Bearing Status Yes During Gait Assistive Devices Assistive Device Gait Belt,Front Wheeled Walker Orthotic/Prosthetic Devices or Brace: No Factors Limiting Gait Function Factors Limiting Gait Function Decreased Strength,Difficulty Following Directions,Limited Range of Motion,Pain,Poor Safety Awareness Comments Gait Comments See mobility comments Stair Climbing Assessment Evaluation Level of Assist On Stairs Contact Guard Assistance Devices Stair Climbing Assistive Devices Front Wheel Walker Technique/Endurance Stair Climbing Direction Ascend and Descend Stair Climbing Technique Step to Step Number of Steps Climbed 1 Stair Climbing Set # Repetitions (reps) 2 Comments Stair Climbing Comments Pt was able to step up CGA with gait belt and FWW. Pt's provided CGA and safety contact FWW placement and body positioning as needed due to mask hindering. Pt steps up fwd, step-to pattern and descends stepping posteriorly step-to in order to follow spinal precautions and avoid bending to reach walker. Good demonstration. PT-Balance Assessment Sitting Balance and Reactions Static Sitting Balance Ability Normal Dynamic Sitting Balance Ability Good Standing Balance and Reactions Static Standing Balance Ability Good Dynamic Standing Balance Ability Good Device Used FWW M5 PT-IP Objective Assessments Start: 11/04/20 12:29 Freq: NEEDED Status: Active Protocol: Document 11/04/20 10:38 AB (Rec: 11/04/20 12:42 AB [id number]) Orientation Orientation/Cognition Level of Alertness Confusional State Orientation Name,Place,Situation Safety Awareness Decreased Safety Awareness Memory Description Short Term Impaired Gross Range of Motion Lower Extremity ROM Assessment Within Functional Limits Strength Lower Extremity Strength Assessment Within Functional Limits Coordination Assessment Gross Coordination Gross Coordination WNL Sensation Assessment Sensation Gross Sensation WNL Muscle Tone Muscle Tone WNL Yes M6 PT-IP Treatment Start: 11/04/20 12:29 Freq: NEEDED Status: Active Protocol: Document 11/05/20 10:18 SP (Rec: 11/05/20 11:28 SP [id number]) Physical Therapy Treatment Education Education Provided Precautions,Weight Bearing Status,Safety M7 PT-IP Assessment and Plan Start: 11/04/20 12:29 Freq: NEEDED Status: Active Protocol: Document 11/05/20 10:18 SP (Rec: 11/05/20 11:28 SP [id number]) PT Summary Assessment and Plan Potential Rehabilitation Potential Good Status of Condition at Evaluation Evolving Summary Impairments Pain,ROM,Strength,Balance, Coordination,Sensation,Tone, Cognition,Bed Mobility, Transfers,Gait,Activity Tolerance Progress Towards Goals Progressing Toward Goals Assessment Summary Pt requires CGA-SBA for all mobilty using fWW. She completes stair training this session with and is able to repeat and good demonstration of her spinal precautions. She has improved since AM session and was able to complete stair training and ambulation goals. Nurse notified of pt's improved therapy status and left with all needs within reach, and present in room. Pt is ok to return home with to assist her as needed when medically cleared. Goals Bed Mobility Goal Standby Assistance Transfer Goal Standby Assistance,Front Wheeled Walker Gait Goal Standby Assistance,Front Wheel Walker Gait Distance 40 Other Goals up/down 2 platform steps using FWW SBA Days to Meet Goals 5 Frequency of Treatment Frequency Of Treatment Twice a Day Treatment Plan Physical Therapy Treatment Plan Bed Mobility Training,Transfer Training,Gait Training, Therapeutic Exercise,Balance Retraining,Post Op Education, Discharge Planning,Hot or Cold Pack,Neuromuscular Re-ed, Coordination Retraining,Manual Therapy Precautions Lumbar Precautions Log Roll,No Twisting,Limit Bending,Lifting Restriction of 10 lbs,Gait Belt above Incisional Area Other Precautions falls Recommendations To Nursing Amount of Assist Needed Standby Assistance Discharge Recommendations PT Discharge Recommendations Home with Assistance Transportation Needs at Discharge Private Vehicle
--- NOTE | 2020-11-05 12:01 | PC.NURSE ---
Pt A&Ox3. VSS, afebrile, LS CTA, +BS x4. Ambulating with SBA. Cleared for discharge per PT and OT. Pain well controlled with tramadol and prn 2mg dialaudid at 3-07/03. Pt verbalizes understanding of discharge instructions, activity restrictions, site care, worsening of symptoms, medication and follow up. Patient discharged with all belongings, medications, prescriptions and FWW.Pt escorted via w/ch to private vehicle with at approximately 1140
== END 2020-11-05 11:40 | disposition home or self-care (01) | DRG 454 ==
LOC: OR 10:57 → AC 10:58
PROVIDERS: Admitting Provider Orthopaedic Surgery Orthopaedic Surgery of the Spine; PCP Internal Medicine; Referring Provider Orthopaedic Surgery Orthopaedic Surgery of the Spine; Visit Provider Orthopaedic Surgery Orthopaedic Surgery of the Spine
PROC: 0SG00AJ Fusion of Lumbar Vertebral Joint with Interbody Fusion Device, Posterior Approach, Anterior Column, Open Approach (ICD-10-PCS; principal; 2020-11-03 12:45)
DX: M48.062 Spinal stenosis, lumbar region with neurogenic claudication (principal); M48.07 Spinal stenosis, lumbosacral region; N39.0 Urinary tract infection, site not specified; M43.16 Spondylolisthesis, lumbar region; M54.16 Radiculopathy, lumbar region; E11.9 Type 2 diabetes mellitus without complications; Z79.84 Long term (current) use of oral hypoglycemic drugs; I10 Essential (primary) hypertension; E78.5 Hyperlipidemia, unspecified; B96.20 Unspecified Escherichia coli [E. coli] as the cause of diseases classified elsewhere; G43.909 Migraine, unspecified, not intractable, without status migrainosus; F32.9 Major depressive disorder, single episode, unspecified; Z20.822 Contact with and (suspected) exposure to COVID-19
CPT/HCPCS: 36415; 72100; 76000; 81001; 82962; 85014; 85018; 87077; 87086; 87186; 87635; 97116; 97162; 97165; 97530; 97535; C1776; C9803; C9290; J0690; J1170; J1815; J2405; J2704; J3010; J3030

== ENCOUNTER → 2021-08-10 14:46 | Outpatient (CLI) | payer MEDICARE, OTHER, SELFPAY ==
[2021-08-02 08:07] VITALS: BMI 30.7
--- NOTE | 2021-08-10 | DI.MG.S_ITS ---
BILATERAL DIGITAL SCREENING MAMMOGRAM 3D/2D WITH CAD: 08/10/2021 CLINICAL: Routine screening. Family history of breast cancer. Comparison is made to exams dated: 12/10/2019 mammogram, 12/07/2017 mammogram, 02/28/2016 mammogram, and 02/26/2015 mammogram - [facility]. There are scattered fibroglandular elements in both breasts. Current study was also evaluated with a Computer Aided Detection (CAD) system. There are benign calcifications in both breasts. No significant masses, calcifications, or other findings are seen in either breast. There has been no significant interval change. IMPRESSION: BENIGN There is no mammographic evidence of malignancy. A 1 year screening mammogram is recommended. This exam was interpreted at Station ID: [id number]. NOTE: For mammograms, a report in lay terms will be sent to the patient. Approximately 15% of breast malignancies will not be visualized mammographically. In the management of a palpable breast mass, a negative mammogram must not discourage biopsy of a clinically suspicious lesion. Electronically Signed By: Edson jeffrey/mary:08/10/2021 15:14:10 letter sent: Normal Exam ACR BI-RADS Category 2: Benign Finding(s) [id number]
== END ==
PROVIDERS: PCP Internal Medicine; Referring Provider Internal Medicine; Visit Provider Internal Medicine
DX: Z12.31 Encounter for screening mammogram for malignant neoplasm of breast (principal); Z80.3 Family history of malignant neoplasm of breast
CPT/HCPCS: 77063; 77067

== ENCOUNTER → 2021-09-12 09:02 | Outpatient (CLI) | payer MEDICARE, OTHER, SELFPAY ==
[2021-08-02 08:07] VITALS: BMI 30.7
[2021-09-12 10:37] LABS: Hematocrit 39.7 % (36-46); Hemoglobin 13.2 g/dL (12.0-16.0); Mean Corpuscular HGB Conc 33.1 % (30-36); Mean Corpuscular Hemoglobin 28.7 PG (26-34); Mean Corpuscular Volume 86.7 fL (80-100); Platelet Count 305 X10^3/uL (150-400); Red Blood Cell Count 4.58 X10^6/uL (4.0-5.2); Red Cell Distribution Width 13.3 % (11.6-14.8); White Blood Cell Count 7.8 X10^3/uL (4.5-11.0)
[2021-09-12 10:55] LABS: Hemoglobin A1C% w Est Avg Glu 8.9 % (4.0-6.0)
[2021-09-12 10:58] LABS: Alanine Aminotransferase 20 IU/L (<35); Albumin Globulin Ratio 1.7 (1.0-2.8); Alkaline Phosphatase 91 U/L (38-126); Aspartate Aminotransferase 24 IU/L (14-36); BUN Creatinine Ratio 28.3 (6-22); Bilirubin Total 0.5 mg/dL (0.2-1.3); Blood Urea Nitrogen 28 mg/dL (7-17); Carbon Dioxide 28 mmol/L (22-32); Chloride 104 mmol/L (98-107); Cholesterol 157 mg/dL (140-199); Estimated Glomerular Filt Rate > 60 mL/min (>60); Globulin 2.4 g/dL (1.7-4.1); Glucose 175 mg/dL (80-110); HDL Cholesterol 55 mg/dL (40-60); HEMOLYSIS < 15 (0-50); LDL Cholesterol Calculated 65 mg/dL (<100); Potassium 5.1 mmol/L (3.4-5.1); Sodium 138 mmol/L (137-145); Total Protein 6.4 g/dL (6.3-8.2); Triglycerides 185 mg/dL (35-150)
[2021-09-12 11:04] LABS: Microalbumi Creatinin Ratio Ur 20.3 ug/mg CR (<30); Microalbumin Urine Random 1.3 mg/dL (0-1.6)
[2021-09-12 11:30] LABS: TSH w/ Reflex to FT4 1.27 uIU/mL (0.47-4.68)
== END ==
PROVIDERS: PCP Internal Medicine; Referring Provider Internal Medicine; Visit Provider Internal Medicine
DX: E11.42 Type 2 diabetes mellitus with diabetic polyneuropathy (principal); E78.2 Mixed hyperlipidemia; G62.9 Polyneuropathy, unspecified; I10 Essential (primary) hypertension
CPT/HCPCS: 36415; 80053; 80061; 82043; 82570; 83036; 84443; 85027

== ENCOUNTER 2021-12-05 10:58 | Emergency (ER) | payer MEDICARE, OTHER, SELFPAY ==
[2021-08-02 08:07] VITALS: BMI 30.7
[2021-12-05 11:17] VITALS: BP 127/58; PULSE 73; RESP 18; TEMP 36.1; O2SAT 96; BMI 30.2
--- NOTE | 2021-12-05 11:26 | DI.CT.S_ITS ---
PROCEDURE: CT LUMBAR SPINE WO CON INDICATIONS: Back pain after fall TECHNIQUE: Noncontrast 3 mm thick sections acquired from the T12 level to the sacrum. Sagittal and coronal reformats were constructed. For radiation dose reduction, the following was used: automated exposure control. COMPARISON: [facility], CT, CT LUMBAR SPINE WO CON, 10/18/2020, 12:46. FINDINGS: Image quality: Excellent. Bones: There is normal bony alignment. No acute vertebral body compression fractures. No suspicious lytic or blastic bony lesions. No pars defects. Posterior fusion hardware at L4-S1. Interbody device placement at L4-L5 and L5-S1. Multilevel disc space narrowing and endplate osteophyte formation. Facet hypertrophy throughout the lumbar spine. Soft tissues: No retroperitoneal masses or hematomas. Visualized aorta is normal in caliber. IMPRESSION: 1. Multilevel degenerative disc and facet disease. 2. Postsurgical sequelae. 3. No acute process. No fracture. Dictated by: Susy Leggett M.D. on 12/05/2021 at 11:44 Approved by: Susy Leggett M.D. on 12/05/2021 at 11:45
[2021-12-05 15:16] VITALS: BP 169/77; PULSE 96; RESP 17; O2SAT 97
--- NOTE | 2021-12-05 17:34 | ED.BACK ---
HPI - Back Pain/Injury <Cesar Castillo PA-C - Last Filed: 12/05/21 18:51> General Chief Complaint: Back Pain/Injury Stated Complaint: fell 1 week ago cant walk without walker now Time Seen by Provider: 12/05/21 15:58 Source: patient History of Present Illness HPI Narrative: 71-year-old female with past medical history hyperlipidemia, hypertension, diabetes, prior lower back surgery presents to the ED with 1 week of lower back pain. Patient states that she was experiencing some worsening back pain while on vacation last week, which caused her to incur a mechanical fall. Patient denies any head strike or loss of consciousness. Patient states that since the fall, she has had pain in her lower back, worst when walking. Patient denies any numbness, tingling, weakness, saddle paresthesias, urinary hesitancy, urinary incontinence, bowel incontinence. Related Data Home Medications Medication Instructions Recorded Confirmed latanoprost 0.005 % eye drops 1 drp EYE-BOTH BID ##0 01/11/17 09/12/21 (Xalatan) timolol 0.5 % eye drops 1 drp EYE-BOTH BID 10/27/20 09/12/21 ascorbic acid (vitamin C) 500 mg PO DAILY 09/12/21 09/12/21 cholecalciferol (vitamin D3) 25 25 mcg PO DAILY 09/12/21 09/12/21 mcg (1,000 unit) capsule insulin glargine 100 unit/mL (3 35 unit SUBCUT QPM 09/12/21 09/12/21 mL) subcutaneous pen (Basaglar KwikPen U-100 Insulin) pen needle, diabetic 31 gauge x #1,200 ea 09/12/21 09/12/2108/08 (Easy Touch) quercetin 1 cap PO DAILY 09/12/21 zinc gluconate 30 mg tablet 30 mg PO DAILY 09/12/21 09/12/21 Previous Rx's Medication Instructions Recorded blood sugar diagnostic (FreeStyle #200 ea 09/12/21 Lite Strips) duloxetine 60 mg capsule,delayed 60 mg PO QDAY #90 caps 09/12/21 release (Cymbalta) gabapentin 300 mg capsule 600 mg PO TID #540 caps 09/12/21 (Neurontin) meloxicam 15 mg tablet 15 mg PO DAILY #90 tabs 09/12/21 rosuvastatin 10 mg tablet 10 mg PO DAILY #90 tabs 09/12/21 sitagliptin 100 mg tablet (Januvia) 100 mg PO QDAY #90 tabs 09/12/21 nortriptyline 10 mg capsule 10 mg PO HS #90 caps 09/16/21 (Pamelor) tramadol 50 mg tablet 50 mg PO QID PRN severe pain 12/01/21 (scale score 7-10) #30 tabs empagliflozin 25 mg tablet 25 mg PO QAM #90 tabs 12/02/21 (Jardiance) lisinopril 20 mg tablet 20 mg PO BID #180 tabs 12/02/21 trazodone 100 mg tablet 100 mg PO HS #90 tabs 12/02/21 cyclobenzaprine 10 mg tablet 10 mg PO TID 5 days #15 tabs 12/05/21 Allergies Allergy/AdvReac Type Severity Reaction Status Date / Time No Known Drug Allergies Allergy Verified 09/12/21 07:57 Review of Systems <Cesar Castillo PA-C - Last Filed: 12/05/21 18:51> Review of Systems ROS Unobtainable: All systems reviewed & are unremarkable except as noted in HPI and below Constitutional Constitutional: Denies chills, Denies fatigue, Denies fever(s), Denies frequent falls, Denies lethargy and Denies weakness Eyes Eyes: Denies change in vision, Denies eye discharge, Denies irritation and Denies loss of vision ENT Ears, Nose, Mouth, and Throat: Denies change in voice, Denies dizziness, Denies neck pain, Denies sore throat and Denies throat swelling Cardiovascular Cardiovascular: Denies chest pain, Denies irregular heart rhythm, Denies lightheadedness, Denies palpitations, Denies dyspnea, Denies dyspnea on exertion and Denies orthopnea Respiratory Respiratory: Denies cough, Denies dyspnea, Denies dyspnea on exertion and Denies wheezing Gastrointestinal Gastrointestinal: Denies abdominal pain, Denies change in bowel habits, Denies diarrhea, Denies nausea and Denies vomiting Genitourinary Genitourinary: Denies hematuria, Denies flank pain, Denies urinary incontinence and Denies urinary urgency Musculoskeletal Musculoskeletal: Reports back pain, Denies muscle weakness, Denies neck pain, Denies numbness and Denies tingling Integumentary/Breasts Skin/Breast: Denies pruritus, Denies erythema, Denies rash and Denies wounds Neurologic Neurologic: Denies behavioral changes, Denies confusion, Denies dizziness, Denies frequent falls, Denies loss of vision, Denies numbness, Denies tingling and Denies weakness Psychiatric Psychiatric: Denies anxiety, Denies behavioral changes, Denies confusion, Denies depression, Denies homicidal ideation and Denies suicidal ideation Endocrine Endocrine: Denies fatigue, Denies flushing and Denies palpitations Hematologic/Lymphatic Hematologic/Lymphatic: Denies easy bruising Allergic/Immunologic Allergic/Immunologic: Denies urticaria, Denies throat swelling and Denies wheezing Patient History <Cesar Castillo PA-C - Last Filed: 12/05/21 18:51> Medical History Anxiety Chronic low back pain Easy bruisability Essential hypertension Eye pressure Generalized anxiety disorder Hard of hearing Mixed hyperlipidemia Polyneuropathy, unspecified 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 Surgical History History of ear surgery History of hysterectomy History of tonsillectomy Hx of bilateral cataract extraction Social History household members: spouse Smoking Status: Never smoker alcohol intake: current Smoking Status: Never smoker alcohol intake frequency: a few times a week Substance Use Type: does not use Exam <Cesar Castillo PA-C - Last Filed: 12/05/21 18:51> Narrative Exam Narrative: Const General:?cooperative, healthy appearing and comfortable [facility] Head:?normal to inspection Ears:?hearing grossly normal bilaterally Nose:?external nose normal Face and sinus:?normal facial exam and sinuses nontender Mouth:?oral mucosae normal Throat:?posterior oropharynx normal Eyes General:?appearance normal, both eyes and all related structures Neck Neck:?normal visual inspection and no lymphadenopathy noted Resp Effort & Inspection:?normal respiratory effort Auscultation:?clear to auscultation bilaterally Cardio Rate:?regular rate Rhythm:?regular rhythm Musculoskeletal No midline tenderness to palpation. No paraspinal tenderness to palpation. No deformities of bruising noted on exam. Patient is neurovascularly intact. Neuro General:?patient alert, patient awake and patient oriented x3 Initial Vital Signs Initial Vital Signs: Vital Signs Temperature 97 F L 12/05/21 11:17 Pulse Rate 73 12/05/21 11:17 Respiratory Rate 18 12/05/21 11:17 Blood Pressure 127/58 L 12/05/21 11:17 Pulse Oximetry 96 12/05/21 11:17 Oxygen Delivery Method 12/05/21 11:17 <Kimberley Shahid DO - Last Filed: 12/06/21 08:11> Initial Vital Signs Initial Vital Signs: Vital Signs Temperature 97 F L 12/05/21 11:17 Pulse Rate 73 12/05/21 11:17 Respiratory Rate 18 12/05/21 11:17 Blood Pressure 127/58 L 12/05/21 11:17 Pulse Oximetry 96 12/05/21 11:17 Oxygen Delivery Method 12/05/21 11:17 Course <Cesar Castillo PA-C - Last Filed: 12/05/21 18:51> Orders Ordered: Discontinued Medications Cyclobenzaprine HCl (Cyclobenzaprine 10 Mg Tablet) 10 mg PO NOW ONE Stop: 12/05/21 17:10 Last Admin: 12/05/21 17:58 Dose: 10 mg Documented By: CHERRY Ketorolac Tromethamine (Ketorolac 30 Mg/Ml Vial) 30 mg IM NOW ONE Stop: 12/05/21 17:10 Last Admin: 12/05/21 17:58 Dose: 30 mg Documented By: CHERRY Vital Signs Vital signs: Vital Signs - 8 hr 12/05/21 11:17 12/05/21 15:16 Temperature 97 F L Pulse Rate 73 96 H Respiratory Rate 18 17 Blood Pressure 127/58 L 169/77 H Pulse Oximetry 96 97 Oxygen Delivery Method Room Air Room Air <Kimberley Shahid DO - Last Filed: 12/06/21 08:11> Orders Ordered: Discontinued Medications Cyclobenzaprine HCl (Cyclobenzaprine 10 Mg Tablet) 10 mg PO NOW ONE Stop: 12/05/21 17:10 Last Admin: 12/05/21 17:58 Dose: 10 mg Documented By: CHERRY Ketorolac Tromethamine (Ketorolac 30 Mg/Ml Vial) 30 mg IM NOW ONE Stop: 12/05/21 17:10 Last Admin: 12/05/21 17:58 Dose: 30 mg Documented By: CHERRY Vital Signs Vital signs: Vital Signs - 8 hr 12/05/21 11:17 12/05/21 15:16 Temperature 97 F L Pulse Rate 73 96 H Respiratory Rate 18 17 Blood Pressure 127/58 L 169/77 H Pulse Oximetry 96 97 Oxygen Delivery Method Room Air Room Air [facility] - Back Pain/Injury <Cesar Castillo PA-C - Last Filed: 12/05/21 18:51> Imaging Data Lumbar CT: Radiologist's Impression: PROCEDURE:? CT LUMBAR SPINE WO CON ? INDICATIONS:? Back pain after fall ? TECHNIQUE:? Noncontrast 3 mm thick sections acquired from the T12 level to the sacrum.? Sagittal and coronal reformats were constructed.? For radiation dose reduction, the following was used:? automated exposure control.? ? COMPARISON:? [facility], CT, CT LUMBAR SPINE WO CON, 10/18/2020, 12:46. ? FINDINGS:? Image quality:? Excellent.? ? Bones:? There is normal bony alignment.? No acute vertebral body compression fractures.? No suspicious lytic or blastic bony lesions.? No pars defects.? Posterior fusion hardware at L4-S1.? Interbody device placement at L4-L5 and L5-S1.? Multilevel disc space narrowing and endplate osteophyte formation.? Facet hypertrophy throughout the lumbar spine. ? Soft tissues:? No retroperitoneal masses or hematomas.? Visualized aorta is normal in caliber.? ? ? IMPRESSION:? 1. Multilevel degenerative disc and facet disease. 2. Postsurgical sequelae. 3. No acute process.? No fracture.? ? ? Dictated by: Susy Leggett M.D. on 12/05/2021 at 11:44 ? ? Approved by: Susy Leggett M.D. on 12/05/2021 at 11:45 ? [facility] Narrative Medical decision making narrative: 71-year-old female with past medical history hyperlipidemia, hypertension, diabetes, prior lower back surgery presents to the ED with 1 week of lower back pain. Obtained lumbar CT to rule out fracture/dislocation. Lumbar CT without acute findings. Patient's symptoms likely due to a musculoskeletal sprain/strain. Patient's symptoms improved with Flexeril and Toradol. ED return precautions discussed with patient. Patient verbalized understanding. Discharge Plan Departure Patient Disposition: Home Clinical Impression: Back pain Instructions: DI for Low Back Pain Activity Restrictions/Additional Instructions: You were evaluated in the ED today for lower back pain. Your CT of the lumbar spine did not show any fractures or dislocations. Your symptoms improved with Flexeril, ketorolac. You may continue to take the Flexeril. Return to the ED if your symptoms worsen, you experience any numbness, tingling, weakness, urinary problems. Prescriptions: New cyclobenzaprine 10 mg tablet 10 mg PO TID 5 Days Qty: 15 0RF No Action latanoprost [Xalatan] 0.005 % drops 1 drp EYE-BOTH BID Qty: 0 nortriptyline [Pamelor] 10 mg capsule 10 mg PO HS Qty: 90 4RF tramadol 50 mg tablet 50 mg PO QID PRN (Reason: severe pain (scale score 7-10)) Qty: 30 2RF trazodone 100 mg tablet 100 mg PO HS Qty: 90 0RF lisinopril 20 mg tablet 20 mg PO BID Qty: 180 0RF Jardiance 25 mg tablet 25 mg PO QAM Qty: 90 0RF (DME) pen needle, diabetic [Easy Touch] 31 gauge x 5/16 needle See Rx Instructions .ROUTE .MEDSUPPLY Qty: 1200 Rx Instructions: As directed ascorbic acid (vitamin C) Granules 500 mg PO DAILY cholecalciferol (vitamin D3) 25 mcg (1,000 unit) capsule 25 mcg PO DAILY quercetin 500 mg 1 cap PO DAILY zinc gluconate 30 mg tablet 30 mg PO DAILY Basaglar KwikPen U-100 Insulin 100 unit/mL (3 mL) insulin pen 35 unit SUBCUT QPM duloxetine [Cymbalta] 60 mg capsule,delayed release(DR/EC) 60 mg PO QDAY Qty: 90 3RF gabapentin [Neurontin] 300 mg capsule 600 mg PO TID Qty: 540 1RF Januvia 100 mg tablet 100 mg PO QDAY Qty: 90 3RF meloxicam 15 mg tablet 15 mg PO DAILY Qty: 90 3RF rosuvastatin 10 mg tablet 10 mg PO DAILY Qty: 90 3RF (DME) FreeStyle Lite Strips Strip See Rx Instructions .Route Qty: 200 3RF Rx Instructions: As directed;1 test strip to test blood glucose. timolol 0.5 % Drops 1 drp EYE-BOTH BID Referrals: Lisandro Aguilar MD [Primary Care Provider] - Visit Report Forms: Patient Portal/API <Kimberley Shahid DO - Last Filed: 12/06/21 08:11> Cosign ED Attending Cosignature Attestation: I was immediately available in the department for consultation. Documentation has been reviewed.
[2021-12-05] MEDS: KETOROLAC 30 MG/ML VIAL IM (17:58)
[2021-12-05] MEDS: CYCLOBENZAPRINE 10 MG TABLET PO (17:58)
[2021-12-05 18:53] VITALS: BP 168/72; PULSE 79; RESP 18; O2SAT 97
== END 2021-12-05 18:54 | disposition home or self-care (01) ==
PROVIDERS: Emergency Provider Student in an Organized Health Care Education/Training Program; PCP Internal Medicine
DX: M54.50 Low back pain, unspecified (principal); W19.XXXA Unspecified fall, initial encounter
CPT/HCPCS: 72131; 96372; 99283; 99284; J1885

== ENCOUNTER → 2021-12-21 12:07 | Outpatient (CLI) | payer MEDICARE, OTHER, SELFPAY ==
[2021-08-02 08:07] VITALS: BMI 30.7
--- NOTE | 2021-12-21 12:09 | DI.RAD.S_ITS ---
PROCEDURE: XR HIP W PEL IF DONE LT 2V INDICATIONS: left hip pain s/p fall TECHNIQUE: AP pelvis with lateral view(s) of the left hip(s). COMPARISON: [facility], CT, CT LUMBAR SPINE WO CON, 12/05/2021, 11:32. [facility], CR, XR HIP W PEL IF DONE LT 2V, 04/07/2019, 10:59. FINDINGS: Bones: Irregularity in the superior left acetabular roof with cortical lucency and possible step-off. Soft tissues: The visualized bowel gas pattern is normal. No suspicious soft tissue calcifications. IMPRESSION: Possible left acetabular roof fracture. CT pelvis recommended. Dictated by: José Luis Jiménez M.D. on 12/23/2021 at 0:15 Approved by: José Luis Jiménez M.D. on 12/23/2021 at 0:19
== END ==
PROVIDERS: PCP Internal Medicine; Referring Provider Internal Medicine; Visit Provider Internal Medicine
DX: M25.552 Pain in left hip (principal); E11.42 Type 2 diabetes mellitus with diabetic polyneuropathy
CPT/HCPCS: 36415; 73502; 83036

== ENCOUNTER → 2021-12-21 12:18 | Outpatient (CLI) | payer MEDICARE, OTHER, SELFPAY ==
[2021-08-02 08:07] VITALS: BMI 30.7
[2021-12-21 14:42] LABS: Hemoglobin A1C% w Est Avg Glu 8.4 % (4.0-6.0)
== END ==
PROVIDERS: PCP Internal Medicine; Referring Provider Internal Medicine; Visit Provider Internal Medicine
DX: E11.42 Type 2 diabetes mellitus with diabetic polyneuropathy (principal)
CPT/HCPCS: 36415; 83036

== ENCOUNTER → 2021-12-23 13:28 | Outpatient (CLI) | payer MEDICARE, OTHER, SELFPAY ==
[2021-08-02 08:07] VITALS: BMI 30.7
--- NOTE | 2021-12-23 13:29 | DI.CT.S_ITS ---
PROCEDURE: CT PEL WO CON INDICATIONS: Left hip pain TECHNIQUE: Noncontrast 3 mm axial sections acquired through the bony pelvis, with coronal and sagittal reformatting. COMPARISON: [facility], CR, XR HIP W PEL IF DONE LT 2V, 12/21/2021, 12:10. FINDINGS: Image quality: Excellent. Bones: Pelvic ring is intact. No acute pelvic or hip fracture is seen. Moderate osteoarthritic changes are noted in bilateral hip joints, sacroiliac joints, and symphysis pubis. No evidence of avascular necrosis of femoral head. No suspicious bony lesion. Postfusion changes are seen in visualized lower lumbar spine. Soft tissues: Thickened bilateral hamstring tendon origins at bilateral ischial tuberosities with internal ill-defined calcifications are seen suggestive of calcific tendinitis. No significant hip joint effusion. No intra-articular loose bodies. No other soft tissue calcifications are seen. There is no pelvic free fluid or free air. No abnormal bowel wall thickening or mesenteric fat stranding. Bladder wall thickness is normal. IMPRESSION: 1. No acute pelvic or hip fracture. No hip dislocation. Osteoarthritic changes are noted throughout bony pelvis. No evidence of avascular necrosis of femoral head. No suspicious bony lesion. Postfusion changes in visualized lower lumbar spine. 2. No pelvic free fluid or free air. 3. 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 No other abnormal soft tissue calcifications are seen. No significant joint effusion or gross intra-articular loose bodies. Dictated by: Dewey Salazar M.D. on 12/23/2021 at 14:22 Approved by: Dewey Salazar M.D. on 12/23/2021 at 14:25
== END ==
PROVIDERS: PCP Internal Medicine; Referring Provider Internal Medicine; Visit Provider Internal Medicine
DX: M25.552 Pain in left hip (principal)
CPT/HCPCS: 72192

== ENCOUNTER → 2022-01-25 19:26 | Outpatient (CLI) | payer MEDICARE, OTHER, SELFPAY ==
[2021-08-02 08:07] VITALS: BMI 30.7
--- NOTE | 2022-01-25 19:28 | DI.MRI.S_ITS ---
PROCEDURE: MR LUMBAR SPINE WO CON INDICATIONS: LUMBAR STENOSIS WITH NEUROGENIC CLAUDICATION TECHNIQUE: Noncontrast sagittal T1 spin echo and T2 fast echo, sagittal STIR, and T2 fast spin echo through the lumbar spine. In cases with scoliosis, additional coronal T2 fast spin echo may be performed. COMPARISON: [facility], CT, CT LUMBAR SPINE WO CON, 12/05/2021, 11:32. [facility], MR, L-SPINE WITHOUT CONTRAST, 11/18/2014, 9:13. [facility], MR, MR LUMBAR SPINE WITHOUT CONTRAST, 06/05/2019, 7:16. This dictation was delayed, awaiting outside prior images/reports, which have now arrived. FINDINGS: Image quality: Excellent. Alignment and Curvature: There is overall straightening of the normal lumbar lordosis. Minimal retrolisthesis is seen at the L3-L4 level. Bone Marrow: Marrow is of normal overall signal. No acute vertebral body compression fractures. Spinal Cord: Conus medullaris terminates at the L1 level. Visualized cord demonstrates normal signal and size. Paraspinous Soft Tissues: No paravertebral masses. Postoperative changes are seen, with bilateral pedicle screws at L4, L5, and S1. Vertical fixation rods are seen. Disc spacers are seen at L4-L5 and L5-S1. There has been removal of portions of the posterior elements. T12-L1: Normal appearance. L1-L2: The disc height and disc signal are relatively well preserved. Mild generalized disc bulge is seen. Bridging endplate osteophytes are seen. There is a mild central/right disc extrusion, with superior migration of the disc material. No significant neural foraminal narrowing is seen. Minimal to mild central canal narrowing can be seen. When comparison is made with the prior images, these findings are similar. L2-L3: The disc height is well-preserved. Loss of disc signal is seen at this level. Moderate facet joint hypertrophy is seen. No significant neural foraminal narrowing can be seen. Minimal central canal narrowing is seen. Stable from the prior study. L3-L4: Moderate loss of disc height is seen. Loss of disc signal is seen. Moderate disc bulge is seen, with a central disc protrusion. Facet hypertrophy is seen. Associated hypertrophy of the ligamentum flavum can be seen. There is at least moderate right-sided and moderate to severe left-sided neural foraminal narrowing. There is a degree of compression seen upon the exiting nerve roots. Moderate to severe central canal narrowing is seen. When compared to the outside 2020 examination, these degenerative changes have progressed. L4-L5: Mild loss of disc height is seen. Loss of disc signal is seen. Moderate generalized disc bulge is seen. There is [id number] right-sided and minimal left-sided neural foraminal narrowing. No significant central canal narrowing is seen. This level is clearly improved compared to the preoperative MRI. L5-S1: Moderate generalized disc bulge is seen. Left hemilaminectomy change can be seen. There is [id number] right-sided and moderate left-sided neural foraminal narrowing. No significant central narrowing is seen. This level is clearly improved compared to the preoperative MRI images. IMPRESSION: Postoperative change seen L4 through S1, with improvement in the degrees of degenerative narrowing at L4-L5 and L5-S1. Mild progression of degenerative change at L3-L4 compared to 2020. Dictated by: Brent Soto M.D. on 01/31/2022 at 15:48 Approved by: Brent Soto M.D. on 01/31/2022 at 15:53
== END ==
PROVIDERS: PCP Internal Medicine; Referring Provider Orthopaedic Surgery Orthopaedic Surgery of the Spine; Visit Provider Orthopaedic Surgery Orthopaedic Surgery of the Spine
DX: M48.062 Spinal stenosis, lumbar region with neurogenic claudication (principal); M48.07 Spinal stenosis, lumbosacral region; M47.816 Spondylosis without myelopathy or radiculopathy, lumbar region
CPT/HCPCS: 72148

== ENCOUNTER → 2022-01-30 15:39 | Outpatient (CLI) | payer MEDICARE, OTHER, SELFPAY ==
[2021-08-02 08:07] VITALS: BMI 30.7
[2022-01-30 16:15] LABS: Add Manual Diff / Slide Review NO; Basophils Absolute Auto 100 /uL (0-100); Basophils Percent Auto 0.6 % (0-2); Eosinophils Absolute Auto 300 /uL (0-450); Eosinophils Percent Auto 3.4 % (2-4); Hematocrit 39.7 % (36-46); Hemoglobin 13.3 g/dL (12.0-16.0); Lymphocytes Absolute Auto 2000 /uL (1100-4500); Lymphocytes Percent Auto 19.9 % (25-40); Mean Corpuscular HGB Conc 33.4 % (30-36); Mean Corpuscular Hemoglobin 27.7 PG (26-34); Monocytes Absolute Auto 700 /uL (0-900); Monocytes Percent Auto 6.9 % (3-14); Neutrophils Absolute Auto 6900 /uL (1500-7000); Neutrophils Percent Auto 69.2 % (50-75); Platelet Count 362 X10^3/uL (150-400); Red Blood Cell Count 4.78 X10^6/uL (4.0-5.2); Red Cell Distribution Width 14.3 % (11.6-14.8)
[2022-01-30 16:30] LABS: BUN Creatinine Ratio 31.9 (6-22); Blood Urea Nitrogen 37 mg/dL (7-17); Calcium 9.2 mg/dL (8.4-10.2); Carbon Dioxide 25 mmol/L (22-32); Chloride 102 mmol/L (98-107); Estimated Glomerular Filt Rate 49 mL/min (>60); Glucose 133 mg/dL (80-110); HEMOLYSIS < 15 (0-50); Potassium 4.7 mmol/L (3.4-5.1); Sodium 138 mmol/L (137-145)
[2022-01-30 16:38] LABS: Hemoglobin A1C% w Est Avg Glu 9.2 % (4.0-6.0)
== END ==
PROVIDERS: PCP Internal Medicine; Referring Provider Internal Medicine; Visit Provider Internal Medicine
DX: I10 Essential (primary) hypertension (principal); E11.42 Type 2 diabetes mellitus with diabetic polyneuropathy
CPT/HCPCS: 36415; 80048; 83036; 85025

== ENCOUNTER → 2022-02-06 12:01 | Outpatient (CLI) | payer MEDICARE, OTHER, SELFPAY ==
[2021-08-02 08:07] VITALS: BMI 30.7
[2022-02-06 12:46] LABS: COVID19 -Nasal RAPID Negative (Negative)
== END ==
PROVIDERS: PCP Internal Medicine; Referring Provider Orthopaedic Surgery Orthopaedic Surgery of the Spine; Visit Provider Orthopaedic Surgery Orthopaedic Surgery of the Spine
DX: Z20.822 Contact with and (suspected) exposure to COVID-19 (principal)
CPT/HCPCS: 87635; C9803

== ENCOUNTER → 2022-02-09 11:29 | Outpatient (CLI) | payer MEDICARE, OTHER, SELFPAY ==
[2021-08-02 08:07] VITALS: BMI 30.7
--- NOTE | 2022-02-09 | DI.RAD.S_ITS ---
PROCEDURE: XR LUMBAR SPINE 6V W BENDING INDICATIONS: Other intervertebral disc degeneration, lumbar region TECHNIQUE: 5 views of the lumbar spine acquired, including flexion and extension views. COMPARISON: [facility], CR, XR LUMBAR SPINE 2 OR 3 VIEWS, 01/24/2022, 13:20. [facility], CR, XR LUMBAR SPINE 2-3V, 11/03/2020, 16:33. FINDINGS: Bones: 5 nonrib-bearing vertebrae are present. There is normal bony alignment. Posterior/interbody fusion again identified at the L4-L5 and L5-S1 levels with posterior fixation hardware and intervertebral spacers in expected positions. 2 mm retrolisthesis from the T12-L1 through the L4-L5 level. Multilevel disc height loss with endplate sclerosis and spurring, moderate at the L3-L4 level. Multilevel lumbar spine facet joint arthropathy. No vertebral body compression fractures. No suspicious bony lesions. Soft tissues: Overlying bowel gas pattern is normal. No suspicious soft tissue calcifications. Vascular calcifications indicate atherosclerosis. Flexion/extension: There is limited range of motion, with preserved normal alignment. IMPRESSION: 1. Prior posterior/interbody fusion L4-L5 and L5-S1. 2. Limited range of motion on the flexion-extension views demonstrating no significant interval change in bony or surgical hardware alignment 3. Multilevel lumbar spine spondylosis similar prior examination. Dictated by: Pradip Garcia [facility] Interpreted: Dewey Salazar MD on 02/09/2022 at 13:08 Approved by: Dewey Salazar M.D. on 02/09/2022 at 17:11
== END ==
PROVIDERS: PCP Internal Medicine; Referring Provider Orthopaedic Surgery Orthopaedic Surgery of the Spine; Visit Provider Orthopaedic Surgery Orthopaedic Surgery of the Spine
DX: M51.36 Other intervertebral disc degeneration, lumbar region (principal); M47.816 Spondylosis without myelopathy or radiculopathy, lumbar region; Z98.1 Arthrodesis status
CPT/HCPCS: 72114

== ENCOUNTER → 2022-03-10 14:50 | Outpatient (CLI) | payer MEDICARE, OTHER, SELFPAY ==
[2021-08-02 08:07] VITALS: BMI 30.7
== END ==
PROVIDERS: PCP Internal Medicine; Referring Provider Internal Medicine; Visit Provider Internal Medicine
DX: Z78.0 Asymptomatic menopausal state (principal); Z13.820 Encounter for screening for osteoporosis; Z92.23 Personal history of estrogen therapy; Z90.710 Acquired absence of both cervix and uterus
CPT/HCPCS: 77080; 77081

== ENCOUNTER → 2022-06-26 16:32 | Outpatient (CLI) | payer MEDICARE, OTHER, SELFPAY ==
[2021-08-02 08:07] VITALS: BMI 30.7
[2022-06-26 18:08] LABS: Alanine Aminotransferase 21 IU/L (<35); Albumin 4.2 g/dL (3.5-5.0); Albumin Globulin Ratio 1.3 (1.0-2.8); Alkaline Phosphatase 79 U/L (38-126); Aspartate Aminotransferase 24 IU/L (14-36); Bilirubin Total 0.4 mg/dL (0.2-1.3); Blood Urea Nitrogen 34 mg/dL (7-17); Calcium 9.3 mg/dL (8.4-10.2); Carbon Dioxide 26 mmol/L (22-32); Chloride 104 mmol/L (98-107); Cholesterol 156 mg/dL (140-199); Estimated Glomerular Filt Rate > 60 mL/min (>60); Globulin 3.2 g/dL (1.7-4.1); Glucose 112 mg/dL (80-110); HDL Cholesterol 56 mg/dL (40-60); HEMOLYSIS < 15 (0-50); LDL Cholesterol Calculated 60 mg/dL (<100); Sodium 137 mmol/L (137-145); Total Protein 7.4 g/dL (6.3-8.2); Triglycerides 201 mg/dL (35-150)
[2022-06-28 13:02] LABS: Labcorp Hemoglobin (Hb) A1c 7.6 % (4.8-5.6)
== END ==
PROVIDERS: PCP Internal Medicine; Referring Provider Internal Medicine; Visit Provider Internal Medicine
DX: E11.42 Type 2 diabetes mellitus with diabetic polyneuropathy (principal); E78.2 Mixed hyperlipidemia; I10 Essential (primary) hypertension
CPT/HCPCS: 36415; 80053; 80061; 83036

== ENCOUNTER → 2022-07-12 16:10 | Outpatient (CLI) | payer MEDICARE, OTHER, SELFPAY ==
[2021-08-02 08:07] VITALS: BMI 30.7
--- NOTE | 2022-07-12 16:11 | DI.RAD.S_ITS ---
PROCEDURE: XR SHOULDER RT MIN 2V INDICATIONS: right shoulder pain TECHNIQUE: Three views of the shoulder were acquired. COMPARISON: None. FINDINGS: Bones: No fractures or dislocations. Mild AC joint degeneration with mild spur formation. Inferior humeral head spurring. No suspicious bony lesions. Visualized ribs appear intact. Soft tissues: Faint possible chondrocalcinosis or bursal calcification seen along the super lateral humeral head, and amorphous calcification in the axillary recess of the joint space. IMPRESSION: 1. Mild AC joint and glenohumeral joint degenerative change. 2. Slight chondrocalcinosis versus bursal, or intra-articular calcification. Dictated by: Cynthia Castillo M.D. on 07/12/2022 at 17:35 Approved by: Cynthia Castillo M.D. on 07/12/2022 at 17:37
== END ==
PROVIDERS: PCP Internal Medicine; Referring Provider Internal Medicine; Visit Provider Internal Medicine
DX: M75.81 Other shoulder lesions, right shoulder (principal)
CPT/HCPCS: 73030

== ENCOUNTER → 2022-10-12 14:42 | Outpatient (CLI) | payer MEDICARE, OTHER, SELFPAY ==
[2022-07-17 11:49] VITALS: BMI 30.7
[2022-10-12 16:29] LABS: BUN Creatinine Ratio 23.3 (6-22); Blood Urea Nitrogen 21 mg/dL (7-17); Calcium 9.2 mg/dL (8.4-10.2); Carbon Dioxide 29 mmol/L (22-32); Chloride 102 mmol/L (98-107); Estimated Glomerular Filt Rate > 60 mL/min (>60); Glucose 106 mg/dL (80-110); HEMOLYSIS < 15 (0-50); Potassium 4.5 mmol/L (3.4-5.1); Sodium 136 mmol/L (137-145)
[2022-10-12 18:52] LABS: Creatinine Urine Random 98.8 mg/dL
[2022-10-12 18:53] LABS: Microalbumi Creatinin Ratio Ur 64.7 ug/mg CR (<30); Microalbumin Urine Random 6.4 mg/dL (0-1.6)
[2022-10-13 03:16] LABS: x Labcorp Estim. Avg Glu (eAG) 166 mg/dL (.); x Labcorp Hemoglobin A1c 7.4 % (4.8-5.6)
== END ==
PROVIDERS: PCP Internal Medicine; Referring Provider Internal Medicine; Visit Provider Internal Medicine
DX: E11.42 Type 2 diabetes mellitus with diabetic polyneuropathy (principal); I10 Essential (primary) hypertension
CPT/HCPCS: 36415; 80048; 82043; 82570; 83036

== ENCOUNTER → 2023-01-09 14:26 | Outpatient (CLI) | payer MEDICARE, OTHER, SELFPAY ==
[2022-07-17 11:49] VITALS: BMI 30.7
[2023-01-09 15:14] LABS: Hemoglobin A1C% w Est Avg Glu 7.2 % (4.0-6.0)
[2023-01-09 15:17] LABS: BUN Creatinine Ratio 29.8 (6-22); Blood Urea Nitrogen 25 mg/dL (7-17); Calcium 9.5 mg/dL (8.4-10.2); Carbon Dioxide 29 mmol/L (22-32); Chloride 100 mmol/L (98-107); Estimated Glomerular Filt Rate > 60 mL/min (>60); Glucose 121 mg/dL (80-110); HEMOLYSIS < 15 (0-50); Potassium 4.7 mmol/L (3.4-5.1); Sodium 134 mmol/L (137-145)
== END ==
PROVIDERS: PCP Internal Medicine; Referring Provider Internal Medicine; Visit Provider Internal Medicine
DX: E11.42 Type 2 diabetes mellitus with diabetic polyneuropathy (principal)
CPT/HCPCS: 36415; 80048; 83036

== ENCOUNTER → 2023-07-03 11:19 | Outpatient (CLI) | payer MEDICARE, OTHER, SELFPAY ==
[2022-07-17 11:49] VITALS: BMI 30.7
[2023-07-03 12:42] LABS: Aspartate Aminotransferase 33 IU/L (14-36); BUN Creatinine Ratio 32.6 (6-22); Blood Urea Nitrogen 30 mg/dL (7-17); Calcium 9.8 mg/dL (8.4-10.2); Carbon Dioxide 31 mmol/L (22-32); Chloride 101 mmol/L (98-107); Cholesterol 151 mg/dL (140-199); Estimated Glomerular Filt Rate > 60 mL/min (>60); Glucose 137 mg/dL (80-110); HDL Cholesterol 44 mg/dL (40-60); HEMOLYSIS < 15 (0-50); LDL Cholesterol Calculated 67 mg/dL (<100); Potassium 4.2 mmol/L (3.4-5.1); Sodium 139 mmol/L (137-145); Triglycerides 200 mg/dL (35-150)
[2023-07-03 14:06] LABS: Creatinine Urine Random 34.6 mg/dL
[2023-07-03 14:10] LABS: Microalbumi Creatinin Ratio Ur 92.4 ug/mg CR (<30); Microalbumin Urine Random 3.2 mg/dL (0-1.6)
[2023-07-03 19:30] LABS: Hemoglobin A1C% w Est Avg Glu 6.9 % (4.0-6.0)
== END ==
PROVIDERS: PCP Internal Medicine; Referring Provider Internal Medicine; Visit Provider Internal Medicine
DX: I10 Essential (primary) hypertension (principal); E11.42 Type 2 diabetes mellitus with diabetic polyneuropathy; E78.2 Mixed hyperlipidemia
CPT/HCPCS: 36415; 80048; 80061; 82043; 82570; 83036; 84450

== ENCOUNTER → 2023-10-25 15:52 | Outpatient (CLI) | payer MEDICARE, OTHER, SELFPAY ==
[2022-07-17 11:49] VITALS: BMI 30.7
--- NOTE | 2023-10-25 15:53 | DI.MG.S_ITS ---
BILATERAL DIGITAL SCREENING MAMMOGRAM 3D/2D WITH CAD: 10/25/2023 CLINICAL: Routine screening. Family history of breast cancer. Comparison is made to exams dated: 08/10/2021 mammogram, 12/10/2019 mammogram, and 12/07/2017 mammogram - [facility]. There are scattered areas of fibroglandular density in both breasts (category b / 25%-50% glandular tissue). Current study was also evaluated with a Computer Aided Detection (CAD) system. There are benign calcifications in both breasts. No significant masses, calcifications, or other findings are seen in either breast. There has been no significant interval change. IMPRESSION: BENIGN There is no mammographic evidence of malignancy. A 1 year screening mammogram is recommended. Based on the Tyrer Cuzick model (a risk assessment model) the patient's lifetime risk is 5.9% and her 10 year risk is 5.9%. According to the ACR, ACS, and NCCN guidelines, an annual breast MRI exam along with mammogram is recommended if the patient's lifetime risk is 20% or greater. This exam was interpreted at Station ID: [id number]. NOTE: For mammograms, a report in lay terms will be sent to the patient. Approximately 15% of breast malignancies will not be visualized mammographically. In the management of a palpable breast mass, a negative mammogram must not discourage biopsy of a clinically suspicious lesion. Electronically Signed By: Edson jeffrey/mary:10/26/2023 16:30:50 letter sent: Normal Exam ACR BI-RADS Category 2: Benign Finding(s) [id number]
== END ==
PROVIDERS: PCP Internal Medicine; Referring Provider Internal Medicine; Visit Provider Internal Medicine
DX: Z12.31 Encounter for screening mammogram for malignant neoplasm of breast (principal); Z80.3 Family history of malignant neoplasm of breast; R92.323 Mammographic fibroglandular density, bilateral breasts
CPT/HCPCS: 77063; 77067

== ENCOUNTER → 2023-11-28 12:08 | Outpatient (CLI) | payer MEDICARE, OTHER, SELFPAY ==
[2022-07-17 11:49] VITALS: BMI 30.7
--- NOTE | 2023-11-28 | DI.MRI.S_ITS ---
PROCEDURE: MR SHOULDER RT WO CON INDICATIONS: Pain in right shoulder TECHNIQUE: Noncontrast oblique coronal T2 fast spin echo with fat saturation, oblique sagittal T1 spin echo and T2 fast spin echo with fat saturation, axial T1 spin echo and T2 fast spin echo with fat saturation through the shoulder. COMPARISON: [facility] [place], CR, XR SHOULDER 2+ VIEWS RIGHT, 11/21/2023, 10:59. FINDINGS: Image quality: Excellent. Bones: Insertional cysts are present at the anterior-lateral and posterior-lateral humeral head. The bone marrow signal is otherwise normal. There is no acute fracture or dislocation. Acromioclavicular joint: Mild-moderate osteoarthritis. There is a type 2 acromion with a 0.3 x 0.5 cm subacromial spur (/). Glenohumeral joint: There is mild osteoarthritis. There is small joint effusion with synovial proliferation. Labrum: There is circumferential blunting and maceration of the labrum Cartilage: There is surface irregularity and thinning of the glenohumeral articular cartilage superiorly (/11). Subacromial-subdeltoid bursa: There is a small amount of fluid in the subacromial-subdeltoid bursa. Rotator cuff: There is a full width, full-thickness tear of the supraspinatus with retraction of the tendon to the humeral dome (8/10), superimposed on severe tendinosis. There is moderate infraspinatus tendinosis. There is mild subscapularis tendinosis.. The teres minor tendon is intact. Long head of biceps tendon: The long head of the biceps tendon is present within the bicipital groove, although the intra-articular portion is not identified. Musculature: There is severe atrophy and fatty replacement of the supraspinatus. Mild deltoid muscle atrophy is present Muscle bulk is otherwise preserved without evidence of denervation or fatty atrophy. Inferior glenohumeral ligaments/Axillary pouch: The axillary pouch is normal in thickness and signal. Coracoclavicular and coracoacromial ligaments: The coracoclavicular and coracoacromial ligaments are normal. Other: No other acute abnormality IMPRESSION: 1. Full-thickness tear of the supraspinatus, superimposed on severe tendinosis and severe muscle atrophy. 2. Moderate infraspinatus tendinosis. 3. Mild subscapularis tendinosis. 4. Possible split tear of the intra-articular portion of the long head of the biceps tendon. 5. Mild glenohumeral osteoarthritis. 6. Mild-moderate acromioclavicular osteoarthritis. Dictated by: Kai Rajan M.D. on 11/28/2023 at 17:09 Approved by: Kai Rajan M.D. on 11/28/2023 at 17:17
== END ==
PROVIDERS: PCP Internal Medicine; Referring Provider Orthopaedic Surgery; Visit Provider Orthopaedic Surgery
DX: M25.511 Pain in right shoulder (principal); S46.011A Strain of muscle(s) and tendon(s) of the rotator cuff of right shoulder, initial encounter; M19.011 Primary osteoarthritis, right shoulder; E11.42 Type 2 diabetes mellitus with diabetic polyneuropathy; I10 Essential (primary) hypertension; R35.0 Frequency of micturition; R39.89 Other symptoms and signs involving the genitourinary system
CPT/HCPCS: 36415; 73221; 80048; 81001; 83036; 87086

== ENCOUNTER → 2023-11-28 13:15 | Outpatient (CLI) | payer MEDICARE, OTHER, SELFPAY ==
[2022-07-17 11:49] VITALS: BMI 30.7
[2023-11-28 13:42] LABS: Appearance Urine UA CLEAR; Bilirubin Urine UA NEGATIVE (NEGATIVE); Color Urine UA YELLOW; Glucose Urine UA 3+ g/dL (Negative); Ketones Urine UA NEGATIVE (NEGATIVE); Leukocyte Esterase Urine UA 2+ (NEGATIVE); Nitrite Urine UA NEGATIVE (Negative); Occult Blood Urine UA 1+ (Negative); Protein Urine UA NEGATIVE (Negative); Specific Gravity Urine UA <=1.005 (1.000-1.035); Urobilinogen Urine UA 0.2 E.U./dL (0.2)
[2023-11-28 13:49] LABS: BUN Creatinine Ratio 32.1 (6-22); Blood Urea Nitrogen 34 mg/dL (7-17); Calcium 9.1 mg/dL (8.4-10.2); Carbon Dioxide 29 mmol/L (22-32); Chloride 100 mmol/L (98-107); Estimated Glomerular Filt Rate 55 mL/min (>60); Glucose 189 mg/dL (80-110); HEMOLYSIS < 15 (0-50); Potassium 4.7 mmol/L (3.4-5.1); Sodium 132 mmol/L (137-145)
[2023-11-28 13:54] LABS: Bacteria Urine Few (2-10); RBC Urine 0-1/HPF (0-5/HPF); Urine Volume 10mL (spun); WBC Urine 30-100/HPF (0-5/HPF)
[2023-11-28 13:55] LABS: Culture Indicated Urine Specimen Cultured; Squamous Epithelial Cell Urine 0-1 /HPF (0-5/HPF)
== END ==
PROVIDERS: PCP Internal Medicine; Referring Provider Internal Medicine; Visit Provider Internal Medicine
DX: E11.42 Type 2 diabetes mellitus with diabetic polyneuropathy (principal); I10 Essential (primary) hypertension; R35.0 Frequency of micturition; R39.89 Other symptoms and signs involving the genitourinary system
CPT/HCPCS: 36415; 80048; 81001; 83036; 87077; 87086; 87186

== ENCOUNTER 2023-12-04 09:53 | Day surgery (SDC) | payer MEDICARE, OTHER, SELFPAY ==
[2022-07-17 11:49] VITALS: BMI 30.7
[2023-12-04 10:28] VITALS: BP 144/70; PULSE 68; RESP 16; TEMP 36.3; O2SAT 97
--- NOTE | 2023-12-04 10:51 | PM.HP.1 ---
History of Present Illness History of Present Illness Date Patient Seen: 12/04/23 Time Patient Seen: 10:51 Chief complaint: Screening Colonoscopy Narrative: 73-year-old woman here for screening colonoscopy. Last colonoscopy was 10 years ago and normal. No recent abdominal concerns. [facility] Medical History (Updated 11/28/23 @ 14:37 by Lisandro Aguilar MD) Recurrent UTI Calcific tendonitis of right shoulder Urine test positive for microalbuminuria Right rotator cuff tendonitis Anesthesia complication Chronic low back pain Generalized anxiety disorder Primary osteoarthritis involving multiple joints Polyneuropathy, unspecified Mixed hyperlipidemia Essential hypertension Type 2 diabetes mellitus with polyneuropathy Anxiety Easy bruisability Hard of hearing Eye pressure Surgical History History of lumbar spinal fusion (11/03/20) History of tonsillectomy History of hysterectomy History of ear surgery Hx of bilateral cataract extraction Social History details: (Rob), son Robbie (pharmacist) household members: spouse Smoking Status: Never smoker alcohol intake: current Meds Home Medications and Allergies Home Medications Medication Instructions Recorded Confirmed Type latanoprost 0.005 % eye drops 1 drp EYE-BOTH DAILY ##0 01/11/17 11/28/23 History (Xalatan) timolol 0.5 % eye drops 1 drp EYE-BOTH DAILY 10/27/20 11/28/23 History [address]ing Permit... #1 ea 03/06/22 11/28/23 Rx meloxicam 15 mg tablet 15 mg PO DAILY #90 tabs 10/17/22 12/04/23 Rx insulin glargine 100 unit/mL (3 50 unit (0.5 mL) SUBCUT QPM #60 mL 01/10/23 12/04/23 Rx mL) subcutaneous pen (Lantus Solostar U-100 Insulin) pen needle, diabetic 31 gauge x #100 ea 01/11/23 11/28/23 Rx 5/16 (Easy Touch) trazodone 100 mg tablet 100 mg PO HS #90 tabs 01/11/23 12/04/23 Rx empagliflozin 25 mg tablet 25 mg PO QAM #90 tabs 03/12/23 12/04/23 Rx (Jardiance) lisinopril 20 mg tablet 20 mg PO BID #180 tabs 03/12/23 12/04/23 Rx sitagliptin phosphate 100 mg 100 mg PO QDAY #90 tabs 03/12/23 12/04/23 Rx tablet (Januvia) blood sugar diagnostic (FreeStyle #200 ea 03/27/23 11/28/23 Rx Lite Strips) amlodipine 5 mg tablet 5 mg PO DAILY #90 tabs 07/16/23 12/04/23 Rx duloxetine 60 mg capsule,delayed 60 mg PO QDAY #90 caps 07/16/23 12/04/23 Rx release (Cymbalta) sodium,potassium,mag sulfates 17.5 See Rx Instructions PO .COMPLEX 11/28/23 Rx gram-3.13 gram-1.6 gram oral soln #354 mL (Suprep Bowel Prep Kit) cephalexin 500 mg tablet 500 mg PO BID urine tract 11/30/23 12/04/23 Rx infection #14 tabs Allergies Allergy/AdvReac Type Severity Reaction Status Date / Time metformin AdvReac Intermediate GI Verified 11/28/23 14:19 intolerance Exam Vital Signs (past 8 hours): - 12/04/23 10:28 Temperature 97.4 F L Pulse Rate 68 Respiratory Rate 16 Blood Pressure 144/70 H Pulse Oximetry 97 Oxygen Delivery Method Room Air Oxygen Delivery Method Room Air Narrative Exam Narrative: General adult woman alert oriented no acute distress Chest nonlabored respiration Extremities warm well perfused Assessment & Plan Assessment & Plan narrative: The patient requires colorectal screening and colonoscopy is recommended. Technical details were discussed. Risks, benefits, alternatives explained. Risks including but not limited to myocardial infarction, aspiration, bleeding, pain, missed lesion, incomplete examination, need for further radiographic studies, intestinal injury, and need for major abdominal surgery were discussed. All questions were answered to their satisfaction, and they are in agreement with this plan. Time-Based Coding :: [TOTAL MINUTES] spent with patient and on the chart (including review of chart, obtaining history, exam, reviewing outside data, placing orders, documenting exam and treatment plan, and counseling patient) on [DATE].
--- NOTE | 2023-12-04 11:16 | P.OP.COLON_ITS ---
Operative Date/Time/Diagnoses Date of procedure: 12/04/23 Time of procedure: 11:16 Pre-op diagnosis: Colorectal screening Procedure & Clinicians Study performed: Screening colonoscopy Same procedure as scheduled: Yes Indications: Screening Surgeon: Jonny Beard Procedure Notes Procedure in detail: The history and physical was performed/updated and the patient is ASA class is 2. The procedure was discussed in detail with the patient. Potential risks complications including infection, bleeding, missed diagnosis, perforation, need for surgery, and were explained. Their questions were answered and informed consent was obtained. Patient was brought to the procedure room and placed standard monitoring equipment. The patient's vital signs were monitored continuously throughout the entire procedure. Prior to starting time-out was performed. The patient was placed in the left lateral recumbent position. Procedural sedation was administered by anesthesia. Examination began with a thorough inspection of the perianal area there was no evidence of fissures, fistulae, external hemorrhoids or cutaneous malignancy. The colonoscopy scope was then placed into the anal canal and was advanced to the cecum, which was identified by the ileocecal valve, the appendiceal orifice and the confluence of the taenia. The scope was then slowly withdrawn examining colon thoroughly in all directions, irrigating it of any residual stool. The scope was retroflexed within the rectum The patient tolerated the procedure well. They will be discharged once criteria are met. The prep was of good/excellent quality. The withdrawl time was 6 minutes. FINDINGS * Unremarkable colonoscopy. Normal healthy colonic mucosa without mass or polyps. Specimen(s): none sent Impression: Normal colonoscopy Post-procedure Plan for aftercare: No need for further colonoscopy unless symptomatic Disposition: same day surgery
[2023-12-04 11:17] VITALS: BP 106/56; PULSE 67; RESP 18; TEMP 36.4; O2SAT 97
[2023-12-04 11:22] VITALS: BP 110/51; PULSE 68; RESP 12; O2SAT 98
[2023-12-04 11:27] VITALS: BP 126/78; PULSE 63; RESP 14; TEMP 36.6; O2SAT 97
[2023-12-04 11:33] VITALS: BP 137/73; PULSE 66; RESP 16; O2SAT 97
== END 2023-12-04 11:51 | disposition home or self-care (01) ==
PROVIDERS: PCP Internal Medicine; Referring Provider Surgery; Visit Provider Surgery
PROC: 0DJD8ZZ Inspection of Lower Intestinal Tract, Via Natural or Artificial Opening Endoscopic (ICD-10-PCS; CPT 45378; principal; 2023-12-04 11:15)
DX: Z12.11 Encounter for screening for malignant neoplasm of colon (principal)
CPT/HCPCS: G0121

== ENCOUNTER → 2023-12-22 10:38 | Outpatient (CLI) | payer MEDICARE, OTHER, SELFPAY ==
[2022-07-17 11:49] VITALS: BMI 30.7
--- NOTE | 2023-12-22 | DI.RAD.S_ITS ---
PROCEDURE: XR LUMBAR SPINE MIN 4V INDICATIONS: low back pain TECHNIQUE: 5 views of the lumbar spine acquired, including flexion and extension views. COMPARISON: [facility], , XR LUMBAR SPINE 6V W BENDING, 02/09/2022, 11:36. FINDINGS: Bones: 5 nonrib-bearing vertebrae are present. There is straightening of the normal lumbar lordosis. Status post L4-S1 posterior spinal fusion and intervertebral spacers at L4-L5 and L5-S1. No evidence of hardware complication. Progressive degenerative changes including disc height loss, endplate sclerosis and osteophytosis since prior radiograph on 02/09/2022 most notable at L3-L4. No vertebral body compression fractures. No suspicious bony lesions. Soft tissues: Overlying bowel gas pattern is normal. No suspicious soft tissue calcifications. Flexion/extension: Limited range of motion with preserved normal alignment. IMPRESSION: Status post L4-S1 posterior and interbody fusion without evidence of hardware complication. Progressive focal degenerative changes at L3-L4 since 2021. Approved by: Anita Ferrer M.D.,Ph.D. on 12/24/2023 at 0:16
--- NOTE | 2023-12-22 | DI.MRI.S_ITS ---
PROCEDURE: MR LUMBAR SPINE WO CON INDICATIONS: LUMBAR STENOSIS, LUMBAR DEGENERATIVE DISC DISEASE TECHNIQUE: Noncontrast sagittal T1 spin echo and T2 fast echo, sagittal STIR, and T2 fast spin echo through the lumbar spine. In cases with scoliosis, additional coronal T2 fast spin echo may be performed. COMPARISON: [facility], CR, XR LUMBAR SPINE MIN 4V, 12/22/2023, 10:46. [facility], MR, MR LUMBAR SPINE WO CON, 01/25/2022, 19:32. FINDINGS: Alignment and Curvature: There is normal bony alignment. Bone Marrow: L4-5 and L5-S1 discectomy and fusion with associated posterior bill and screw instrumentation. Inter spinous fixation device noted L3-4. Appears to been a right laminectomy and medial facetectomy at L3-4 in the interval Spinal Cord: Conus medullaris terminates at the L1 level. Visualized cord demonstrates normal signal and size. Paraspinous Soft Tissues: No paravertebral masses. T12-L1: Normal appearance. L1-L2: Disc bulge asymmetric to the right. Mild central stenosis. No foraminal stenosis. L2-L3: Mild disc bulge and hypertrophic facet joints. Mild central stenosis mild bilateral foraminal stenosis. L3-L4: Disc bulge and hypertrophic facet joints present. There is now a synovial cyst arising from the right facet measuring 1.0 x 0.7 cm, new from the prior exam. Right laminectomy and medial facetectomy noted. Ligamentum flavum has been removed, and only mild residual central stenosis present. Synovial cyst results in effacement of the right lateral recess however. Severe bilateral foraminal stenosis persists L4-L5: Discectomy and fusion. No central stenosis. Mild right and no left foraminal stenosis L5-S1: Discectomy and fusion. No central stenosis. Moderate bilateral foraminal stenosis. IMPRESSION: Probable interval surgical decompression without instrumentation at L3-4. Mild persistent central stenosis. New synovial cyst arising from the right facet at L3-4 effaces the right lateral recess. Severe bilateral foraminal stenosis present. Instrumented discectomy and fusion at L4-5 and L5-S1 stable Approved by: Fernando Rayo M.D. on 12/24/2023 at 13:24
== END ==
PROVIDERS: PCP Internal Medicine; Referring Provider Orthopaedic Surgery Orthopaedic Surgery of the Spine; Visit Provider Orthopaedic Surgery Orthopaedic Surgery of the Spine
DX: M48.061 Spinal stenosis, lumbar region without neurogenic claudication (principal); M48.07 Spinal stenosis, lumbosacral region; M47.816 Spondylosis without myelopathy or radiculopathy, lumbar region; M51.36 Other intervertebral disc degeneration, lumbar region; M71.38 Other bursal cyst, other site; Z98.1 Arthrodesis status
CPT/HCPCS: 72110; 72148

== ENCOUNTER → 2024-07-02 16:14 | Outpatient (CLI) | payer MEDICARE, OTHER, SELFPAY ==
[2022-07-17 11:49] VITALS: BMI 30.7
[2024-07-02 17:29] LABS: Hemoglobin A1C% w Est Avg Glu 7.2 % (4.0-6.0)
[2024-07-02 17:30] LABS: Aspartate Aminotransferase 26 IU/L (14-36); BUN Creatinine Ratio 34.2 (6-22); Blood Urea Nitrogen 38 mg/dL (7-17); Calcium 9.7 mg/dL (8.4-10.2); Carbon Dioxide 27 mmol/L (22-32); Chloride 104 mmol/L (98-107); Cholesterol 226 mg/dL (140-199); Estimated Glomerular Filt Rate 52 mL/min (>60); Glucose 200 mg/dL (80-110); HDL Cholesterol 55 mg/dL (40-60); HEMOLYSIS < 15 (0-50); LDL Cholesterol Calculated 105 mg/dL (<100); Potassium 5.3 mmol/L (3.4-5.1); Sodium 136 mmol/L (137-145); Triglycerides 332 mg/dL (35-150)
[2024-07-02 17:41] LABS: Microalbumin Urine Random < 0.6 mg/dL (0-1.6)
== END ==
PROVIDERS: PCP Internal Medicine; Referring Provider Internal Medicine; Visit Provider Internal Medicine
DX: E11.42 Type 2 diabetes mellitus with diabetic polyneuropathy (principal); E78.2 Mixed hyperlipidemia; I10 Essential (primary) hypertension
CPT/HCPCS: 36415; 80048; 80061; 82043; 82570; 83036; 84450

== ENCOUNTER → 2024-07-25 15:42 | Outpatient (CLI) | payer MEDICARE, OTHER, SELFPAY ==
[2022-07-17 11:49] VITALS: BMI 30.7
--- NOTE | 2024-07-25 15:44 | DI.CT.S_ITS ---
PROCEDURE: CT LUMBAR SPINE WO CON INDICATIONS: INVERTEBRAL DISC DEGERNATION TECHNIQUE: Noncontrast 3 mm thick sections acquired from the T12 level to the sacrum. Sagittal and coronal reformats were constructed. For radiation dose reduction, the following was used: automated exposure control. COMPARISON: [facility], MR, MR LUMBAR SPINE WO CON, 12/22/2023, 11:04. [facility] [place], CR, XR LUMBAR SPINE 2 OR 3 VIEWS, 01/24/2022, 13:20. [facility], CT, CT LUMBAR SPINE WO CON, 12/05/2021, 11:32. [facility], CT, CT LUMBAR SPINE WO CON, 10/18/2020, 12:46. FINDINGS: Image quality: Excellent. Bones: 5 non rib-bearing lumbar vertebrae. Diffuse osseous demineralization. Vertebral body heights are preserved. Status post prior L4-S1 TLIF with intervertebral disc spacer placement as well as posterior decompression. Compared to 01/24/2022, interval placement of an interspinous process spacer device at the L3-L4 level. No CT evidence of hardware complication. Alignment: Straightening of the cervical lordosis. Discs: Severe intervertebral disc height loss at L3-L4 with vacuum disc phenomenon and endplate subchondral cyst formation (). Additional vacuum disc phenomenon at L2-L3 with mild height loss. Central canal: Although the epidural space is not well assessed on CT, there is no severe central canal stenosis. Neural foramina: Severe bilateral foraminal stenosis at L3-L4. Mild-moderate right foraminal stenosis at L4-L5. Mild bilateral foraminal stenosis at L5-S1. No no significant foraminal stenosis at the other levels. Prevertebral soft tissues: Scattered colonic diverticulosis. Moderate aortoiliac atherosclerosis without aneurysmal dilatation. No prevertebral soft tissue edema. No focal retroperitoneal mass in the field of view. Mild bilateral paraspinal muscle atrophy without a focal dorsal soft tissue fluid collection. IMPRESSION: 1. Severe disc height loss at L3-L4 with endplate changes, as well as severe bilateral foraminal stenosis at that level. 2. No severe central canal stenosis. 3. Status post L4-S1 TLIF and L3-L4 interspinous spacer device placement without hardware complication. Dictated by: Kai Rajan M.D. on 07/29/2024 at 1:26 Approved by: Kai Rajan M.D. on 07/29/2024 at 1:37
== END ==
PROVIDERS: PCP Internal Medicine; Referring Provider Internal Medicine; Visit Provider Orthopaedic Surgery Orthopaedic Surgery of the Spine
DX: M51.369 Other intervertebral disc degeneration, lumbar region without mention of lumbar back pain or lower extremity pain (principal); M48.061 Spinal stenosis, lumbar region without neurogenic claudication; M48.07 Spinal stenosis, lumbosacral region; Z98.1 Arthrodesis status
CPT/HCPCS: 72131

== ENCOUNTER → 2024-09-08 14:30 | Outpatient (CLI) | payer MEDICARE, OTHER, SELFPAY ==
[2022-07-17 11:49] VITALS: BMI 30.7
[2024-09-08 14:55] LABS: Appearance Urine UA CLOUDY; Bilirubin Urine UA NEGATIVE (NEGATIVE); Color Urine UA YELLOW; Glucose Urine UA 3+ g/dL (Negative); Ketones Urine UA NEGATIVE (NEGATIVE); Leukocyte Esterase Urine UA 1+ (NEGATIVE); Nitrite Urine UA NEGATIVE (Negative); Occult Blood Urine UA TRACE-INTACT (Negative); Protein Urine UA NEGATIVE (Negative); Urobilinogen Urine UA 0.2 E.U./dL (0.2)
[2024-09-08 15:01] LABS: Bacteria Urine Many (>30); Culture Indicated Urine Specimen Cultured; RBC Urine 0-1/HPF (0-5/HPF); Squamous Epithelial Cell Urine 0-1 /HPF (0-5/HPF); Urine Volume 10mL (spun); WBC Urine 30-100/HPF (0-5/HPF)
== END ==
PROVIDERS: PCP Internal Medicine; Referring Provider Internal Medicine; Visit Provider Internal Medicine
DX: N39.0 Urinary tract infection, site not specified (principal)
CPT/HCPCS: 81001; 87077; 87086

== ENCOUNTER → 2024-09-15 15:13 | Outpatient (CLI) | payer MEDICARE, OTHER, SELFPAY ==
[2022-07-17 11:49] VITALS: BMI 30.7
--- NOTE | 2024-09-15 15:16 | DI.US.S_ITS ---
PROCEDURE: US INJECTION TENDON SHEATH INDICATIONS: proximal bicep tendon injection w US TECHNIQUE: The indications, alternatives, benefits, risks, and complications of the procedure were explained to the patient. Written informed consent was obtained and placed in the chart. The patient was placed in an appropriate position on the fluoroscopy table, and a site was chosen for percutaneous access under ultrasound guidance. Local anesthetic was administered using a 1% lidocaine solution. A hypodermic or spinal needle was then used to access the symptomatic tendon sheath. Intra-articular location of the needle tip was confirmed by real time ultrasound imaging, followed by steroid administration. The needle was then withdrawn, and a bandage applied to the puncture site. COMPARISON: None. FINDINGS: Area injected: Right bicipital groove tendon sheath Medications injected: 1.5 mL of 40 mg/mL Kenalog and 0.5% Ropivacaine mixture. Complications: None. IMPRESSION: Successful ultrasound guided administration of steroid and anaesthetic solution into the right bicipital groove tendon sheath. Dictated by: Luis F Lincoln M.D. on 09/15/2024 at 16:38 Approved by: Luis F Lincoln M.D. on 09/15/2024 at 16:39
== END ==
PROVIDERS: PCP Internal Medicine; Referring Provider Orthopaedic Surgery; Visit Provider Orthopaedic Surgery
DX: M25.511 Pain in right shoulder (principal)
CPT/HCPCS: 20550; 76942

== ENCOUNTER → 2024-09-25 11:11 | Outpatient (CLI) | payer MEDICARE, OTHER, SELFPAY ==
[2022-07-17 11:49] VITALS: BMI 30.7
[2024-09-25 12:43] LABS: Bilirubin Urine UA NEGATIVE (NEGATIVE); Color Urine UA YELLOW; Glucose Urine UA 3+ g/dL (Negative); Ketones Urine UA TRACE (NEGATIVE); Leukocyte Esterase Urine UA 1+ (NEGATIVE); Nitrite Urine UA NEGATIVE (Negative); Occult Blood Urine UA TRACE-INTACT (Negative); Protein Urine UA NEGATIVE (Negative); Specific Gravity Urine UA 1.010 (1.000-1.035); Urobilinogen Urine UA 0.2 E.U./dL (0.2)
[2024-09-25 12:44] LABS: Appearance Urine UA CLOUDY; pH Urine UA 6.0 (4.5-8.0)
[2024-09-25 12:55] LABS: Culture Indicated Urine Specimen Cultured
== END ==
PROVIDERS: PCP Internal Medicine; Referring Provider Internal Medicine; Visit Provider Internal Medicine
DX: R35.0 Frequency of micturition (principal)
CPT/HCPCS: 81001; 87077; 87086; 87186

== ENCOUNTER → 2024-10-09 14:44 | Outpatient (CLI) | payer MEDICARE, OTHER, SELFPAY ==
[2022-07-17 11:49] VITALS: BMI 30.7
[2024-10-09 15:40] LABS: Hemoglobin A1C% w Est Avg Glu 6.2 % (4.0-6.0)
[2024-10-09 15:52] LABS: Blood Urea Nitrogen 20 mg/dL (7-17); Calcium 9.5 mg/dL (8.4-10.2); Carbon Dioxide 28 mmol/L (22-32); Chloride 102 mmol/L (98-107); Estimated Glomerular Filt Rate > 60 mL/min (>60); Glucose 92 mg/dL (70-99); HEMOLYSIS < 15 (0-50); Potassium 4.7 mmol/L (3.4-5.1); Sodium 136 mmol/L (137-145)
== END ==
PROVIDERS: PCP Internal Medicine; Referring Provider Internal Medicine; Visit Provider Internal Medicine
DX: E11.42 Type 2 diabetes mellitus with diabetic polyneuropathy (principal)
CPT/HCPCS: 36415; 80048; 83036

== ENCOUNTER → 2024-11-27 12:45 | Outpatient (CLI) | payer MEDICARE, OTHER, SELFPAY ==
[2022-07-17 11:49] VITALS: BMI 30.7
--- NOTE | 2024-11-27 12:48 | EKG_ITS ---
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
[2024-11-27 13:57] LABS: Add Manual Diff / Slide Review NO; Hematocrit 40.1 % (36-46); Hemoglobin 13.4 g/dL (12.0-16.0); Lymphocytes Absolute Auto 2000 /uL (1100-4500); Mean Corpuscular HGB Conc 33.5 % (30-36); Mean Corpuscular Hemoglobin 29.6 PG (26-34); Mean Corpuscular Volume 88.4 fL (80-100); Platelet Count 313 X10^3/uL (150-400)
[2024-11-27 14:33] LABS: Alanine Aminotransferase 17 IU/L (<35); Albumin 4.1 g/dL (3.5-5.0); Albumin Globulin Ratio 1.7 (1.0-2.8); Alkaline Phosphatase 91 U/L (38-126); Blood Urea Nitrogen 25 mg/dL (7-17); Calcium 9.3 mg/dL (8.4-10.2); Carbon Dioxide 24 mmol/L (22-32); Chloride 99 mmol/L (98-107); Estimated Glomerular Filt Rate 58 mL/min (>60); Globulin 2.4 g/dL (1.7-4.1); Glucose 135 mg/dL (70-99); HEMOLYSIS < 15 (0-50); Potassium 4.7 mmol/L (3.4-5.1); Sodium 134 mmol/L (137-145); Total Protein 6.5 g/dL (6.3-8.2)
== END ==
LOC: LAB 12:46 → RESP 12:48
PROVIDERS: PCP Internal Medicine; Referring Provider Internal Medicine; Visit Provider Internal Medicine
DX: Z01.818 Encounter for other preprocedural examination (principal)
CPT/HCPCS: 36415; 80053; 85025; 93005

== ENCOUNTER → 2025-01-07 10:52 | Outpatient (CLI) | payer MEDICARE, OTHER, SELFPAY ==
[2022-07-17 11:49] VITALS: BMI 30.7
--- NOTE | 2025-01-07 10:55 | DI.NM.S_ITS ---
PROCEDURE: NM BONE SPECT RADIOPHARMACEUTICAL: 20.2 mCi Tc-99m MDP IV. INDICATIONS: Stenosis TECHNIQUE: Delayed bone scintigrams were obtained of the region of interest 3-4 hours after intravenous administration of Tc-99m MDP. Additional tomographic (SPECT) imaging was performed and displayed in axial, coronal, and sagittal planes. COMPARISON: [facility], CT, CT LUMBAR SPINE WO CON, 07/25/2024, 15:58. FINDINGS: Planar imaging demonstrates intense activity at L3-4 disc level. Normal soft tissue, renal and bladder activity noted on planar imaging. Dedicated SPECT imaging of the lumbar spine confirms intense activity localized to the L3-4 disc space. In addition, moderate right and [id number] left L3-4 facet uptake is noted. No concerning uptake as a L4-S1 fusion. No concerning uptake at the L3-4 interspinous spacer. IMPRESSION: Intense activity localized to the L3-4 disc space. Moderate right and mild to moderate left L3-4 facet uptake. These findings are likely degenerative in origin. Dictated by: Lorna Vick M.D. on 01/08/2025 at 8:21 Approved by: Lorna Vick M.D. on 01/08/2025 at 8:27
[2025-01-07 12:37] LABS: Hemoglobin A1C% w Est Avg Glu 6.0 % (4.0-6.0)
[2025-01-07 12:49] LABS: Blood Urea Nitrogen 26 mg/dL (7-17); Calcium 9.4 mg/dL (8.4-10.2); Carbon Dioxide 26 mmol/L (22-32); Chloride 99 mmol/L (98-107); Cholesterol 158 mg/dL (140-199); Estimated Glomerular Filt Rate > 60 mL/min (>60); Glucose 117 mg/dL (70-99); HDL Cholesterol 66 mg/dL (40-60); HEMOLYSIS < 15 (0-50); Sodium 133 mmol/L (137-145); Triglycerides 134 mg/dL (35-150)
[2025-01-07 12:51] LABS: Potassium 5.4 mmol/L (3.4-5.1)
== END ==
PROVIDERS: PCP Internal Medicine; Referring Provider Physician Assistant Medical; Visit Provider Physician Assistant Medical
DX: E11.42 Type 2 diabetes mellitus with diabetic polyneuropathy (principal); M48.07 Spinal stenosis, lumbosacral region; M96.0 Pseudarthrosis after fusion or arthrodesis; R80.9 Proteinuria, unspecified; E78.2 Mixed hyperlipidemia
CPT/HCPCS: 36415; 78305; 80048; 80061; 83036; A9503

== ENCOUNTER → 2025-01-07 14:18 | Outpatient (CLI) | payer MEDICARE, OTHER, SELFPAY ==
[2022-07-17 11:49] VITALS: BMI 30.7
--- NOTE | 2025-01-07 14:20 | DI.CT.S_ITS ---
PROCEDURE: CT MASTOID TEMPORAL INDICATIONS: hearing loss COMPARISON: None. TECHNIQUE: Noncontrast 0.6 mm thick axial sections acquired through each temporal bone separately. Coronal images are reformatted. FINDINGS: Image quality: Excellent. RIGHT: External auditory canal: Canal has a normal appearance. Middle ear: The middle ear structures, including the ossicles and tympanic membrane, appear normal. No abnormal fluid or soft tissue density. Inner ear: Inner ear is normally formed and appears unremarkable. Facial nerve appears normal throughout is course. Mastoids: Mastoid air cells are clear. LEFT: External auditory canal: Canal has a normal appearance. Middle ear: The middle ear structures, including the ossicles and tympanic membrane, appear normal. No abnormal fluid or soft tissue density. Inner ear: Inner ear is normally formed and appears unremarkable. Facial nerve appears normal throughout its course. Mastoids: Mastoid air cells are clear. MISCELLANEOUS: Visualized surrounding bones appear unremarkable. Visualized intracranial structures, including the cerebellopontine angle cisterns, appear normal. IMPRESSION: Unremarkable exam. Dictated by: Dana Caceres M.D. on 01/08/2025 at 10:31 Approved by: Dana Caceres M.D. on 01/08/2025 at 10:41
== END ==
LOC: CT 14:19
PROVIDERS: PCP Internal Medicine; Referring Provider Internal Medicine; Visit Provider Otolaryngology
DX: H90.12 Conductive hearing loss, unilateral, left ear, with unrestricted hearing on the contralateral side (principal); H90.A32 Mixed conductive and sensorineural hearing loss, unilateral, left ear with restricted hearing on the contralateral side; H90.A21 Sensorineural hearing loss, unilateral, right ear, with restricted hearing on the contralateral side; E11.42 Type 2 diabetes mellitus with diabetic polyneuropathy; M48.07 Spinal stenosis, lumbosacral region; M96.0 Pseudarthrosis after fusion or arthrodesis; R80.9 Proteinuria, unspecified; E78.2 Mixed hyperlipidemia
CPT/HCPCS: 36415; 70480; 78305; 80048; 80061; 83036; A9503